=== PATIENT | male | born 1990 | race Caucasian/White ===

== ENCOUNTER → 2021-06-07 | Outpatient (CLI) | payer OTHER, SELFPAY | END | disposition home or self-care (01) | PROVIDERS: Visit Provider Nurse Practitioner Family | DX: Z20.822 Contact with and (suspected) exposure to COVID-19 (principal) | CPT/HCPCS: 87635; U0005; U0003 ==

== ENCOUNTER 2021-07-26 17:49 | Outpatient (CLI) | payer OTHER, SELFPAY | END 2021-07-26 23:59 | disposition short-term general hospital (02) | PROVIDERS: Visit Provider Family Medicine | DX: U07.1 COVID-19 (principal) | CPT/HCPCS: 87635; U0003; U0005 ==

== ENCOUNTER 2021-07-29 08:22 | Outpatient (CLI) | payer OTHER, SELFPAY ==
[2021-07-29 08:33] VITALS: BP 123/83; PULSE 58; RESP 16; TEMP 36.9; O2SAT 98; BMI 36.5
[2021-07-29] MEDS: 0.9% Saline Lock 10 ML Syringe IV (08:47)
[2021-07-29 09:20] VITALS: BP 109/70; PULSE 74; RESP 16; TEMP 36.8; O2SAT 100
[2021-07-29 10:21] VITALS: BP 121/81; PULSE 71; RESP 16; TEMP 36.8; O2SAT 100
== END 2021-07-29 23:59 | disposition home or self-care (01) ==
LOC: MS3OUT 08:22 → MS3 08:23
PROVIDERS: Referring Provider Nurse Practitioner Adult Health; Visit Provider Nurse Practitioner Adult Health
DX: Z23 Encounter for immunization (principal); U07.1 COVID-19
CPT/HCPCS: J7050; M0245; Q0245; A4216

== ENCOUNTER → 2022-02-08 | Outpatient (CLI) | payer MEDICAID, SELFPAY ==
[2022-02-08 12:54] LABS: Anion Gap 4 (5-15); BUN 15 mg/dL (7-18); BUN/Creat Ratio 15.5 RATIO (10-20); Calcium,Total 9.4 mg/dL (8.5-10.1); Chloride 105 mmol/L (98-107); Cholesterol 221 mg/dL (200); Creatinine, Serum 0.97 mg/dL (0.70-1.30); EST Glomerular Filtration Rate 94 mL/min (>60); Est Glom Filt Rate - Afr Amer 114 mL/min (>60); Glucose 90 mg/dL (74-106); High Density Lipoprotein 50 mg/dL; Sodium Level 137 mmol/L (136-145); Triglycerides 111 mg/dL; Very Low Density Lipoprotein 22 mg/dL (5-40)
== END | disposition home or self-care (01) ==
PROVIDERS: PCP Nurse Practitioner Family; Referring Provider Nurse Practitioner Family; Visit Provider Nurse Practitioner Family
DX: R05.9 Cough, unspecified (principal); Z13.220 Encounter for screening for lipoid disorders; Z13.1 Encounter for screening for diabetes mellitus
CPT/HCPCS: 87635; 36415; 80048; 80061; U0003; U0005

== ENCOUNTER → 2024-03-26 | Outpatient (CLI) | payer OTHER, SELFPAY ==
[2024-03-26 17:58] LABS: Absolute Lymphocyte Count 1.93 X10^3/uL (0.83-4.51); Absolute Neutrophil Count 4.9 X10^3/uL (2.0-7.7); Basophil# 0.04 X10^3/uL; Basophil% 0.5 % (0-1); Eosinophil# 0.21 X10^3/uL; Eosinophils% 2.7 % (0-5); Hematocrit 41.8 % (40-54); Hemoglobin 14.1 g/dL (13.0-16.5); Lymphocyte # 1.93 X10^3/ul (0.83-4.51); Lymphocyte % 25.1 % (19-41); Mean Corp Hgb Conc 33.7 g/dL (32-36); Mean Corpuscular Hgb 29.9 pg (27.0-32.0); Mean Corpuscular Volume 88.6 fL (80-94); Mean Platelet Vol. 9.7 fl (6.2-12.0); Monocyte# 0.59 X10^3/uL; Monocyte% 7.7 % (0-10); NRBC Flagged by Analyzer 0 % (0-5); Neutrophil # 4.91 X10^3/uL (2.7-7.7); Neutrophil % 63.7 % (47-70); Platelet Count 333 K/mm3 (150-450); RBC Distribution Width CV 12.5 % (11.6-14.6); RBC Distribution Width SD 40.9 fl (35.1-43.9); Red Blood Count 4.72 M/mm3 (4.6-6.2); White Blood Count 7.7 K/mm3 (4.4-11.0)
== END | disposition home or self-care (01) ==
LOC: MFPLAB 14:44
PROVIDERS: PCP Nurse Practitioner Family; Visit Provider Family Medicine
DX: S02.5XXA Fracture of tooth (traumatic), initial encounter for closed fracture (principal)
CPT/HCPCS: 36415; 85025

== ENCOUNTER 2025-02-14 19:59 | Emergency (ER) | payer SELFPAY ==
[2025-02-14 20:00] VITALS: BP 151/95; PULSE 55; RESP 16; TEMP 36.9; O2SAT 100; BMI 36.7
--- NOTE | 2025-02-14 20:11 | ED.VIS.DENTA ---
HPI <XENA Esquivel - Last Filed: 02/14/25 20:57> History of Present Illness Chief Complaint: Dental Narrative Narrative: 34-year-old male has had pain in his right upper tooth intermittently for the last 2 weeks but today it worsened with sharp pain radiating towards his ear. He states he has a hole in the tooth. He denies fever, chills, or difficulty swallowing or breathing. He took Tylenol earlier. PFSH <XENA Esquivel - Last Filed: 02/14/25 20:57> [facility]LY [facility], [facility] Medical History (Updated 02/14/25 @ 20:12 by XENA Esquivel) Syncopal episodes Concussion with loss of consciousness Tooth fracture Facial contusion Forehead contusion Home Medications ?Medication ?Instructions ?Recorded ?Last Taken ?Type cetirizine 10 mg tablet (Zyrtec) 10 mg PO DAILY PRN Allergic 07/29/21 Unknown History Symptoms escitalopram oxalate 20 mg tablet 20 mg PO DAILY 07/29/21 Unknown History amoxicillin 875 mg-potassium 1 tab PO BID 7 days #14 tabs 02/14/25 Unknown Rx clavulanate 125 mg tablet naproxen 500 mg tablet (Naprosyn) 500 mg PO BID PRN pain #20 tabs 02/14/25 Unknown Rx Allergy/AdvReac Type Severity Reaction Status Date / Time No Known Allergies Allergy Verified 02/14/25 20:02 Social History Smoking Status: Current every day smoker tobacco type: cigarettes ROS <XENA Esquivel - Last Filed: 02/14/25 20:57> ROS ED ROS Narrative Constitutional: Negative for fever, chills, malaise. GI: Negative for nausea, vomiting. Neuro: Negative for headache. EXAM <XENA Esquivel - Last Filed: 02/14/25 20:57> Physical Exam Narrative Exam Narrative: CONST: Patient sitting in no acute distress. EYES: Normal inspection. ENT: Yellow teeth with plaque buildup and several fillings. Right upper premolar has a small hole and is tender to palpation. There is no periapical abscess or facial swelling. Normal posterior oropharynx, no trismus or tongue elevation, sublingual space is soft. No drooling or stridor. Neck appears normal with midline trachea and no masses or lymphadenopathy. RESP: No respiratory distress, CTAB. CVS: Regular rate and rhythm, no murmur, no gallop. SKIN: Color normal, no rash, warm, dry, intact. EXTREMITIES: Normal appearance, no pedal edema. NEURO: Alert and answering questions appropriately. PSYCH: Normal affect. Const Vital Signs: 02/14/25 20:00 02/14/25 20:21 Temperature 98.4 F 98.4 F Temperature Source Temporal Pulse Rate 55 L 71 Respiratory Rate 16 12 Blood Pressure 151/95 H 141/87 H Blood Pressure Mean 113 105 Pulse Ox 100 99 Oxygen Delivery Method Room Air <Dr. Iker Vang MD - Last Filed: 02/14/25 21:12> Physical Exam Const Vital Signs: 02/14/25 20:00 02/14/25 20:21 Temperature 98.4 F 98.4 F Temperature Source Temporal Pulse Rate 55 L 71 Respiratory Rate 16 12 Blood Pressure 151/95 H 141/87 H Blood Pressure Mean 113 105 Pulse Ox 100 99 Oxygen Delivery Method Room Air [facility] <XENA Esquivel - Last Filed: 02/14/25 20:57> [facility] Narrative Medical decision making narrative: 34-year-old male has intermittent dental pain in his right upper premolar over the last 2 weeks that worsened today. There is a small hole in the tooth which is chronic. There is no signs of periapical abscess or Onesimo's angina. He is tolerating secretions. He is afebrile with stable vital signs. I prescribed Augmentin and naproxen with first dose given here. He has seen a dentist at the [facility] in the past and will follow-up there. He was discharged in stable condition. Differential Diagnosis Differential Diagnosis: Dental caries, dental abscess, Onesimo's angina <Dr. Iker Vang MD - Last Filed: 02/14/25 21:12> [facility] Narrative Medical decision making narrative: 34-year-old male has intermittent dental pain in his right upper premolar over the last 2 weeks that worsened today. There is a small hole in the tooth which is chronic. There is no signs of periapical abscess or Onesimo's angina. He is tolerating secretions. He is afebrile with stable vital signs. I prescribed Augmentin and naproxen with first dose given here. He has seen a dentist at the [facility] in the past and will follow-up there. He was discharged in stable condition. I have personally performed a face to face assessment of the patient and have reviewed the NATE Note. I performed a substantive portion of the visit including all aspects of the following. My anand findings include: History is 34-year-old male no [facility] past medical history. Right upper dental pain for several days. No fever. No trouble swallowing. No trauma history. Exam is [34-year-old male no acute distress vital signs stable afebrile. H EENT exam pupils round reactive light. Moist mucous membranes. Posterior pharynx unremarkable. Poor dentition right upper jaw cavity eroded tooth. Gingival inflammation no abscess. No trismus. Able to swallow and breathe out difficulty. No significant facial swelling. No trismus. Neck nontender no lymphadenopathy. Lungs clear. Heart regular rhythm no murmur. Chest wall nontender. Abdomen soft nontender. Moving all 4 extremities. Awake and alert. No focal motor deficits.] Medical Decision Making [34-year-old male dental cavity, dental pain and gingivitis. Started on antibiotic. Outpatient follow-up with a dentist.] Other additions or changes: [None] Discharge Plan Triage Chief Complaint: Dental ED Midlevel Provider: Aracelis Guerrero ED Provider: Iker Vang Dx/Rx/DC Orders Clinical Impression: Dental caries, Pain, dental Instructions: ED Dental Pain Prescriptions: New naproxen [Naprosyn] 500 mg tablet 500 mg PO BID PRN (Reason: pain) Qty: 20 0RF amoxicillin-pot clavulanate 875-125 mg tablet 1 tab PO BID 7 Days Qty: 14 0RF No Action escitalopram oxalate 20 mg Tablet 20 mg PO DAILY cetirizine [Zyrtec] 10 mg Tablet 10 mg PO DAILY PRN (Reason: Allergic Symptoms) Primary Care Provider: Lucille Montalvo NP [facility]] Lucille Montalvo NP, [facility] [Primary Care Provider] - Activity Restrictions/Additional Instructions: I prescribed an antibiotic and naproxen which you can take for pain twice daily. You can continue taking Tylenol 1000 mg every 6 hours as needed. Follow-up with a dentist. Print Language: Ukrainian Disposition Disposition: Home, Self Care Discharge Date/Time: 02/14/25 21:01
[2025-02-14 20:21] VITALS: BP 141/87; PULSE 71; RESP 12; TEMP 36.9; O2SAT 99
--- OUTSIDE RECORDS SUMMARY | 2025-02-14 20:23 | XMS RPT_ITS | CCD ---
Author Organization [facility] Care Team Providers Care Dispatcher [employer]obile [employer] Name Role Phone Unavailable Primary Care Provider Unavaildianna MCGHEE MD, DR CONDON Primary Care Physician LAUREN KRISHNA, ORION Primary Care Physician SUBHASH MACK DO Attending Unavailable LAUREN KRISHNA, ORION Primary Care Unavailable NIMISHA KRISHNA, DANIELLE Islas Attending Unavail able LITZY KRISHNA, DR CONDON Primary Care Unavai lable BENDARAM, NOA BROWN Referring Unavaila ble BENDARAM, NOA BROWN Attending Unavaila ble STALEY, MOEIN Referring Unavailable STALEY, MOEIN Referring Unavailable STALEY, MOEIN Attending Unavailable Selvin VP [employer], Lucille Primary Care Unavailable Selvin VP [employer], Lucille Referring Unavailable Mic Cheung Attending Unavailable Selvin VP [employer], Lucille Primary Care Unavailable Selvin VP [employer], Lucille Referring Unavailable Mic Cheung Attending Unavailable Orion Aguilar Attending Unavailable Selvin VP [employer], Lucille Primary Care Unavailable Medications Current Medications Medication Drug Class(es) Dates Sig (Normalized) Sig (Original) cetirizine hydrochloride 10 mg oral tablet (1 source) Histamine-1 Receptor Antagonist Start: 07-29-2021 take 1 tablet by mouth once daily Cetirizine (Zyrtec) 10 mg Tablet Active 10 MG PO DAILY July 29, 2021 1:00am escitalopram 20 mg oral tablet (9 sources) Serotonin Reuptake Inhibitor Start: 02-12-2024 take 1 tablet by mouth once escitalopram oxalate (LEXAPRO) 20 mg tablet Take 1 tablet by mouth every afternoon. 02/12/2024 Active Start: 07-29-2021 take 20 mg by mouth once daily Escitalopram Oxalate Active 20 MG PO DAILY July 29, 2021 1:00am ipratropium bromide 0.021 mg/actuat metered dose nasal spray (3 sources) Anticholinergic Start: 06-25-2024 Ipratropium [place] (ATROVENT) 21 mcg (0.03 %) nasal spray 06/25/2024 Active iv contrast (will be provided with radiology test) (1 source) Start: 05-10-2024 End: 05-11-2024 inject 1 dose intravenously once iv contrast (will be provided with radiology test) MRI Brain Inject, intravenously, once for 1 dose.No IV access, insert saline lock prior to beginning of sedation, infusion, injection of imaging exam.Discontinue saline lock post exam. If Pt. has a central line or IVAD, may access for administration according to line specific nursing protocol.Once exam is complete flush line and de-access according to line specific nursing protocol in the MR contrast administration guidelines link 1 Each 05/10/2024 05/11/2024 Active metoprolol tartrate 25 mg oral tablet (8 sources) beta-Adrenergic Guy Start: 02-09-2024 take 1 tablet by mouth twice daily metoprolol tartrate, short acting, (LOPRESSOR) 25 mg tablet TAKE 1/2 (ONE HALF) TABLET BY MOUTH TWO TIMES DAILY 02/09/2024 Active ondansetron 4 mg disintegrating oral tablet (1 source) Serotonin-3 Receptor Antagonist Start: 07-07-2024 End: 07-11-2024 ondansetron 4 mg oral tablet, disintegrating Dose : 4 mg = 1 tab(s), Oral, q6h, PRN Nausea/Vomiting, X 4 day(s), # 12 tab(s), 0 Refill(s), 07/11/24 10:21:00 AM EST Start Date: 07/07/24 Stop Date: 07/11/24 Status: Ordered Quantity: 12.0 Unit: tab(s) Repeat number: 1 Completed/Discontinued Medications Medication Drug Class(es) Dates Sig (Normalized) Sig (Original) buPROPion (1 source) Aminoketone End: 05-10-2024 BUPROPION HCL ORAL Take by mouth. 05/10/2024 Discontinued Problems Active Problems Problem Classification Problem Date Documented Da te Episodic/Chronic Disorders of teeth and jaw (1 source) Defective dental scientology; Translations: [Fractured dental restorative material, unspecified] Onset: 03-25-2024 Episodic Nausea and vomiting (1 source) Vomiting; Translations: [Vomiting, unspecified] Onset: 07-07-2024 Episodic Other endocrine disorders (2 sources) Empty sella syndrome; Translations: [Other disorders of pituitary gland] 05-10-2024 Chronic Other endocrine disorders (1 source) Other disorders of pituitary gland; Translations: [Empty sella (HCC)] Onset: 06-28-2024 Chronic Other nervous system disorders (3 sources) Benign intracranial hypertension; Translations: [Benign intracranial hypertension] 05-10-2024 Chronic Other nervous system disorders (1 source) Benign intracranial hypertension; Translations: [Benign intracranial hypertension] Onset: 06-07-2024 Chronic Other nutritional; endocrine; and metabolic disorders (1 source) Body mass index 30+ - obesity; Translations: [Body mass index (BMI) 39.0-39.9, adult] Chronic Skull and face fractures (1 source) Fracture of tooth (traumatic), initial encounter for closed fracture; Translations: [Fracture of tooth (traumatic), initial encounter for closed fracture] Onset: 11-20-2024 Episodic Thyroid disorders (3 sources) Disorder of thyroid gland; Translations: [Disorder of thyroid, unspecified] Onset: 07-19-2024 06-28-2024 Episodic Viral infection (1 source) Disease caused by 2019-nCoV; Translations: [COVID-19] Episodic Past or Other Problems Problem Classification Problem Date Documented Date Episodic/Chronic Intracranial injury (1 source) Concussion with loss of consciousness of unspecified duration, initial encounter; Translations: [Concussion with loss of consciousness of unspecified duration, initial encounter] Onset: 04-04-2024 Episodic Superficial injury; contusion (1 source) Contusion of other part of head, initial encounter; Translations: [Contusion of other part of head, initial encounter] Onset: 04-04-2024 Episodic Syncope (3 sources) Syncope; Translations: [Syncope and collapse] Onset: 03-25-2024 05-10-2024 Episodic Results Test Name Value Interpretation Reference Range Facility US THYROID/PARATHYROIDon US THYROID/PARATHYROID * * *Final Report* * * DATE OF EXAM: Jul 19 2024 10:00AM [facility] [id number] - US THYROID/PARATHYROID / PROCEDURE REASON: Asymmetrical thyroid * * * * Physician Interpretation * * * * EXAMINATION: THYROID ULTRASOUND CLINICAL HISTORY: 33 years old 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 Images were obtained and stored in a permanent archive. MQ: UST_1 COMPARISON: None. RESULT: Right Lobe: 4.5 x 1.4 x 1.6 cm; homogeneous echogenicity, expected vascular flow. Left Lobe: 4.2 x 1.1 x 1.7 cm; homogeneous echogenicity, expected vascular flow. Isthmus: 0.2 cm The most suspicious thyroid nodule(s) (up to four) as below: Nodules: None IMPRESSION: Normal sonographic appearance of the thyroid. Salt Washer: ISMAEL Transcribe Date/Time: Jul 21 2024 2:24A Dictated by : ERON DE JESUS DO This examination was interpreted and the report reviewed and electronically signed by: ERON DE JESUS DO on Jul 21 2024 2:25AM EST [id number] Normal [facility] .Auto Diffon 07-07-2024 Basophil, Absolute 0.1 10 3/mcL Normal 0.0-0.2 [facility] Comment on above: Performed By: #### ELSA CANDELARIO #### [address] [address] Basophils/100 WBC (Bld) 0.3 % Normal 0.0-2.5 [facility] Comment on above: Performed By: #### ELSA CANDELARIO #### [address] [address] Eosinophil, Absolute 0.1 10 3/mcL Normal 0.0-0.7 [facility] Comment on above: Performed By: #### ELSA CANDELARIO #### [id number] [place], [place] [address] Eosinophils/100 WBC (Bld) 0.7 % Normal 0.0-7.0 [facility] Comment on above: Performed By: #### ELSA CANDELARIO #### [id number] [place], [place] [address] Lymphocyte, Absolute 0.5 10 3/mcL Low 0.9-4.3 [facility] Comment on above: Performed By: #### ELSA CANDELARIO #### [address] [address] Lymphocytes/100 WBC (Bld) 2.9 % Low 20.0-40.0 [facility] Comment on above: Performed By: #### U AMICAO, UA #### [address] [place], [place] [address] Monocyte, Absolute 1.2 10 3/mcL Normal 0.1-1.4 [facility] Comment on above: Performed By: #### U AMICAO, UA #### [address] [address] Monocytes/100 WBC (Bld) 6.7 % Normal 2.0-13.0 [facility] Comment on above: Performed By: #### U AMICAO UA #### [address] [address] Neutrophils/100 WBC (Bld) 89.4 % High 50.0-75.0 [facility] Comment on above: Performed By: #### U AMICAO UA #### [address] [address] .GFRon 07-07-2024 GFR 90 ml/min/1.73sqm Normal [facility] Comment on above: Result Comment: GFR Population mean for , Non- Americans Ages 20-29 = 116 mL/min/1.73 sq.m. Ages 30-39 = 107 mL/min/1.73 sq.m. Ages 40-49 = 99 mL/min/1.73 sq.m. Ages 50-59 = 93 mL/min/1.73 sq.m. Ages 60-69 = 85 mL/min/1.73 sq.m. Ages 70+ = 75 mL/min/1.73 sq.m. Chronic Kidney Disease: Less than 60 mL/min/1.73 square meters End Stage Renal Disease: Less than 15 mL/min/1.73 square meters Performed By: #### U AMICAO, UA #### [address] [address] GFR Non- 74 ml/min/1.73sqm Normal [facility] Comment on above: Result Comment: GFR Population mean for , Non- Americans Ages 20-29 = 116 mL/min/1.73 sq.m. Ages 30-39 = 107 mL/min/1.73 sq.m. Ages 40-49 = 99 mL/min/1.73 sq.m. Ages 50-59 = 93 mL/min/1.73 sq.m. Ages 60-69 = 85 mL/min/1.73 sq.m. Ages 70+ = 75 mL/min/1.73 sq.m. Chronic Kidney Disease: Less than 60 mL/min/1.73 square meters End Stage Renal Disease: Less than 15 mL/min/1.73 square meters Performed By: #### Noah PLASCENCIA UA #### [address] [address] .MDWon 07-07-2024 Monocyte Distribution Width 16.23 Normal 0.00-20.00 [facility] Comment on above: Result Comment: For ED adult patients suspected of sepsis, MDW<=20.0 does not rule out sepsis or risk of sepsis Performed By: #### Noah PLASCENCIA UA #### [address] [address] .NEUABSon 07-07-2024 Neutrophil, Absolute 16.5 10 3/mcL High 2.3-8.1 [facility] Comment on above: Performed By: #### Noah PLASCENCIA UA #### [address] [address] .Urinalysis Microscopic (AO) on 07-07-2024 UA Mucous 2+ /hpf Normal [facility] Comment on above: Performed By: #### Noah PLASCENCIA UA #### [address] UA RBC 0-5 Abnormal None Seen [facility] Comment on above: Performed By: #### Noah PLASCENCIA UA #### [address] UA Squam Epithelial 0-5 Abnormal None Seen [facility] Comment on above: Performed By: #### U AMICAO, UA #### [address] [address] UA WBC 5-10 Abnormal None Seen [facility] Comment on above: Performed By: #### U AMICAO, UA #### [address] [address] BMPon 07-07-2024 BUN/Creatinine Ratio 19 ratio Normal 7-27 [facility] Comment on above: Performed By: #### U AMICAO, UA #### [address] [address] Calcium [Mass/Vol] 9.2 mg/dL Normal 8.4-10.2 [facility] Comment on above: Performed By: #### U AMICAO, UA #### [address] [address] Chloride [Moles/Vol] 103 mmol/L Normal 98-107 [facility] Comment on above: Performed By: #### U AMICAO, UA #### [address] [address] CO2 [Moles/Vol] 28 mmol/L Normal 22-29 [facility] Comment on above: Performed By: #### U AMICAO, UA #### [address] [address] Creatinine [Mass/Vol] 1.13 mg/dL Normal 0.70-1.30 [facility] Comment on above: Result Comment: Test ing performed on Siemens Dimension EXL analyzer using a modified kinetic Oscar technique. Performed By: #### U AMICAO, UA #### [address] [address] Electrolyte Balance 8.0 mEq/L Normal 4.0-15.0 [facility] Comment on above: Performed By: #### U AMICAO, UA #### [address] [address] Glucose [Mass/Vol] 126 mg/dL High 70-105 [facility] Comment on above: Performed By: #### U AMICAOmega UA #### [address] [address] Potassium [Moles/Vol] 4.1 mmol/L Normal 3.5-5.1 [facility] Comment on above: Performed By: #### U AMICAOmega UA #### [address] [address] Sodium [Moles/Vol] 139 mmol/L Normal 136-145 [facility] Comment on above: Performed By: #### U THAIS UA #### [address] [id number] Urea nitrogen [Mass/Vol] 22 mg/dL High 7-18 [facility] Comment on above: Performed By: #### Noah PLASCENCIA UA #### [address] [address] CBCon 07-07-2024 Erythrocyte distribution width (RBC) [Ratio] 12.9 % Normal 11.5-15.5 [facility] Comment on above: Performed By: #### Noah PLASCENCIA UA #### [address] [address] Hematocrit (Bld) [Volume fraction] 49.6 % Normal 40.0-52.0 [facility] Comment on above: Performed By: #### Noah PLASCENCIA UA #### [address] [address] Hgb 17.4 G/dL Normal 13.0-17.5 [facility] Comment on above: Performed By: #### U THAIS, UA #### [address] [address] MCH (RBC) [Entitic mass] 31.0 pg Normal 27.0-33.0 [facility] Comment on above: Performed By: #### U AMICAOmega UA #### [address] [address] MCHC 35.1 G/dL Normal 32.0-36.0 [facility] Comment on above: Performed By: #### Noah PLASCENCIA UA #### [id number] MCV (RBC) [Entitic vol] 88.6 fL Normal 81.0-100.0 [facility] Comment on above: Performed By: #### Noah PLASCENCIA UA #### [address] [place] [address] Platelet 312 10 3/mcL Normal 150-450 [facility] Comment on above: Performed By: #### Noah PLASCENCIA UA #### [address] [address] Platelet mean volume (Bld) [Entitic vol] 6.7 fL Normal 6.4-10.5 [facility] Comment on above: Performed By: #### Noah PLASCENCIA UA #### [address] [place] [address] RBC 5.60 10 6/mcL Normal 4.50-6.00 [facility] Comment on above: Performed By: #### Noah PLASCENCIA UA #### [address] [address] WBC 18.5 10 3/mcL High 4.5-10.8 [facility] Comment on above: Performed By: #### Noah PLASCENCIA UA #### [address] [address] LABORATORYOrdered By: SYSTEM SYSTEM on 07-07-2024 Basophils (Bld) [#/Vol] 0.1 103/mcL Normal 0.0 - 0.2 10^3/mcL AO Workflow SS Basophils/100 WBC (Bld) 0.3 % Normal 0.0 - 2.5 % AO Workflow SS Calcium [Mass/Vol] 9.2 mg/dL Normal 8.4 - 10. 2 mg/dL AO ADM SS Chloride [Moles/Vol] 103 mmol/L Normal 98 - 10 7 mmol/L AO ADM SS CO2 [Moles/Vol] 28 mmol/L Normal 22 - 29 mmol/L AO ADM SS Creatinine [Mass/Vol] 1.13 mg/dL Normal 0.70 - 1.30 mg/dL AO ADM SS Comment on above: Interpretive Data: T esting performed on Siemens Dimension EXL analyzer using a modified kinetic Oscar technique. Electrolyte Balance 8.0 mEq/L Normal 4.0 - 15 .0 mEq/L AO ADM SS Eosinophil, Absolute 0.1 103/mcL Normal 0.0 - 0 .7 10^3/mcL AO Workflow SS Eosinophils/100 WBC (Bld) 0.7 % Normal 0.0 - 7.0 % AO Workflow SS Erythrocyte distribution width (RBC) [Ratio] 12.9 % Normal 11.5 - 15.5 % AO Workflow SS GFR/1.73 sq M.predicted among blacks MDRD (S/P/Bld) [Vol rate/Area] 90 ml/min/1.73sqm Invalid Interpretation Code AO Chemistry S Comment on above: Interpretive Data: GFR Population mean for , Non- Americans Ages 20-29 = 116 mL/min/1.73 sq.m. Ages 30-39 = 107 mL/min/1.73 sq.m. Ages 40-49 = 99 mL/min/1.73 sq.m. Ages 50-59 = 93 mL/min/1.73 sq.m. Ages 60-69 = 85 mL/min/1.73 sq.m. Ages 70+ = 75 mL/min/1.73 sq.m. Chronic Kidney Disease: Less than 60 mL/min/1.73 square meters End Stage Renal Disease: Less than 15 mL/min/1.73 square meters GFR/1.73 sq M.predicted among non-blacks MDRD (S/P/Bld) [Vol rate/Area] 74 ml/min/1.73sqm Invalid Interpretation Code AO Chemistry S Comment on above: Interpretive Data: GFR Population mean for , Non- Americans Ages 20-29 = 116 mL/min/1.73 sq.m. Ages 30-39 = 107 mL/min/1.73 sq.m. Ages 40-49 = 99 mL/min/1.73 sq.m. Ages 50-59 = 93 mL/min/1.73 sq.m. Ages 60-69 = 85 mL/min/1.73 sq.m. Ages 70+ = 75 mL/min/1.73 sq.m. Chronic Kidney Disease: Less than 60 mL/min/1.73 square meters End Stage Renal Disease: Less than 15 mL/min/1.73 square meters Glucose [Mass/Vol] 126 mg/dL High 70 - 105 mg/dL AO ADM SS Hematocrit (Bld) [Volume fraction] 49.6 % Normal 40.0 - 52.0 % AO Workflow SS Hemoglobin (Bld) [Mass/Vol] 17.4 G/dL Normal 13.0 - 17.5 G/dL AO Workflow SS Lymphocytes (Bld) [#/Vol] 0.5 103/mcL Low 0.9 - 4.3 10^3/mcL AO Workflow SS Lymphocytes/100 WBC (Bld) 2.9 % Low 20.0 - 40.0 % AO Workflow SS Magnesium [Mass/Vol] 1.9 mg/dL Normal 1.8 - 2 .4 mg/dL AO ADM SS MCH (RBC) [Entitic mass] 31.0 pg Normal 27.0 - 33.0 pg AO Workflow SS MCHC 35.1 G/dL Normal 32.0 - 36.0 G/dL AO Workflow SS MCV (RBC) [Entitic vol] 88.6 fL Normal 81.0 - 100.0 fL AO Workflow SS Monocyte distribution width Auto (Bld) [Entitic vol] 16.23 1 Normal 0.00 - 20.00 AO Workflow SS Comment on above: Result Comment: For ED adult patients suspected of sepsis, MDW<=20.0 does not rule out sepsis or risk of sepsis Monocytes (Bld) [#/Vol] 1.2 103/mcL Normal 0.1 - 1.4 10^3/mcL AO Workflow SS Monocytes/100 WBC (Bld) 6.7 % Normal 2.0 - 13.0 % AO Workflow SS Neutrophils (Bld) [#/Vol] 16.5 103/mcL High 2.3 - 8.1 10^3/mcL AO Workflow SS Neutrophils/100 WBC (Bld) 89.4 % High 50.0 - 75.0 % AO Workflow SS Platelet mean volume (Bld) [Entitic vol] 6.7 fL Normal 6.4 - 10.5 fL AO Workflow SS Platelets (Bld) [#/Vol] 312 103/mcL Normal 150 - 450 10^3/mcL AO Workflow SS Potassium [Moles/Vol] 4.1 mmol/L Normal 3.5 - 5.1 mmol/L AO ADM SS RBC (Bld) [#/Vol] 5.60 106/mcL Normal 4.50 - 6.0 0 10^6/mcL AO Workflow SS Sodium [Moles/Vol] 139 mmol/L Normal 136 - 145 mmol/L AO ADM SS Troponin I.cardiac DL <= 0.01 ng/mL [Mass/Vol] 6 ng/L Normal 0 - 76 ng/L AO ADM SS Comment on above: Interpretive Data: H igh Sensitive Troponin I Reference Ranges: Female: 0-51 ng/L Male: 0-76 ng/L Testing performed on Impinj using a homogeneous sandwich chemiluminescent immunoassay based on [employer] technology. Urea nitrogen [Mass/Vol] 22 mg/dL High 7 - 18 mg/dL AO ADM SS Urea nitrogen/Creatinine [Mass ratio] 19 ratio Normal 7 - 27 ratio AO ADM SS WBC (Bld) [#/Vol] 18.5 103/mcL High 4.5 - 10.8 10^3/mcL AO Workflow SS LABORATORYOrdered By: Marilee Cordoba on 07-07-2024 Appearance (U) Clear (07/07/24 8:22 AM) Normal Clear AO Auto Urine SS Bilirubin Ql (U) Negative (07/07/24 8:22 AM) Normal Negative AO Auto Urine SS Color (U) Yellow (07/07/24 8:22 AM) Normal AO Auto Urine SS Glucose Test strip (U) [Mass/Vol] Negative Normal Negative AO Auto Urine SS Hemoglobin Auto test strip (U) [Mass/Vol] Negative (07/07/24 8:22 AM) Normal Negative AO Auto Urine SS Ketones Ql (U) Negative Normal Negative AO Auto Urine SS UA Leuk Est Negative (07/07/24 8:22 AM) Normal Negative AO Auto Urine SS UA Mucous 2+ /HPF Normal AO Auto Urine SS UA Nitrite Negative (07/07/24 8:22 AM) Normal Negative AO Auto Urine SS UA pH 5.5 (07/07/24 8:22 AM) Normal 5.0 - 8.0 AO Auto Urine SS UA Protein 30 mg/dL Normal Negative AO Auto Urine SS UA RBC 0-5 /HPF Invalid Interpretation Code None Seen AO Auto Urine SS UA Spec Grav >=1.030 *ABN* (07/07/24 8:22 AM) Invalid Interpretation Code 1.015-1.025 AO Auto Urine SS UA Specimen Type Clean Catch (07/07/24 8:22 AM) Normal AO Auto Urine SS UA Squam Epithelial 0-5 /HPF Invalid Interpretation Code None Seen AO Auto Urine SS UA Urobilinogen 0.2 E.U./dL Normal 0.2-1.0 AO Auto Urine SS WBC LM.HPF (Urine sed) [#/Area] 5-10 /HPF Invalid Interpretation Code None Seen AO Auto Urine SS MGon 07-07-2024 Magnesium [Mass/Vol] 1.9 mg/dL Normal 1.8-2.4 [facility] Comment on above: Performed By: #### U AMICAO UA #### [address] [address] TROPHSon 07-07-2024 High Sensitivity Troponin I 6 ng/L Normal 0-76 [facility] Comment on above: Result Comment: High Sensitive Troponin I Reference Ranges: Female: 0-51 ng/L Male: 0-76 ng/L Testing performed on Impinj using a homogeneous sandwich chemiluminescent immunoassay based on CourseHorse technology. Performed By: #### U AMICAO, UA #### [address] [address] UAon 07-07-2024 Color (U) Yellow Normal [facility] Comment on above: Performed By: #### U AMICAO, UA #### [address] [address] Glucose (U) [Mass/Vol] Negative Normal Negative [facility] Comment on above: Performed By: #### U AMICAO, UA #### [address] [address] Ketones Ql (U) Negative Normal Negative [facility] Comment on above: Performed By: #### U AMICAO, UA #### [address] [address] UA Appear Clear Normal Clear [facility] Comment on above: Performed By: #### U AMICAO, UA #### [address] [address] UA Blood Negative Normal Negative [facility] Comment on above: Performed By: #### U AMICAO, UA #### [address] [address] UA Leuk Est Negative Normal Negative [facility] Comment on above: Performed By: #### U AMICAO, UA #### [address] [address] UA Nitrite Negative Normal Negative [facility] Comment on above: Performed By: #### U AMICAO, UA #### [address] [address] UA pH 5.5 Normal 5.0 - 8.0 [facility] Comment on above: Performed By: #### U AMICAO, UA #### [place] [address] UA Protein 30 mg/dL Normal Negative [facility] Comment on above: Performed By: #### U AMICAO, UA #### [address] [address] UA Spec Grav >=1.030 Abnormal 1.015-1.025 [facility] Comment on above: Performed By: #### U AMICAO, UA #### [address] [address] UA Specimen Type Clean Catch Normal [facility] Comment on above: Performed By: #### U AMICAO, UA #### [address] [address] UA Urobilinogen 0.2 E.U./dL Normal 0.2-1.0 [facility] Comment on above: Performed By: #### U AMICAO, UA #### [place] [id number] Urobilinogen (U) [Mass/Vol] Negative Normal Negative [facility] Comment on above: Performed By: #### U AMICAO, UA #### [place] [address] CNOVon 06-28-2024 CNOV Office Visit (ENWSTR ) YOMI ALBERTO ([id number]) 1990 M Date Time Provider Department 06/28/24 1:40 PM NOA KISER ENWSTR During your visit today, we recorded the following information about you: Temperature Pulse Blood pressure Weight 98.5 degrees 76/minute 132/62 95.9 kg Height 1.702 m Noa Kiser MD 06/29/2024 7:51 PM Addendum [facility] Initial Clinic Visit Note Consulted by: Peggy Staley MD (Neurology) Chief Complaint: Empty sella syndrome HPI: This is a 33 year old male who presents with empty sells syndrome. He is accompanied by his mother today History in brief, he passed out at work in Mar 2024, on standing. Denied any symptoms before. The next thing he knew was that he was on the floor He was on metoprolol for few years, stopped it few days ago after tapering, due to low BP He is following neurology No injuries to head, no vision changes, no nipple discharge, breast tenderness, N/V/D, changes known in weight or appetite per patient, but mother points out that he might have lost about 30 lbs in the last 2 years due to stress, going through divorce No muscle cramps, temperature intolerance Only on lexapro now,. No use of supplements PAST MEDICAL HISTORY: Depression PAST SURGICAL HISTORY: No past surgical history on file. FAMILY HISTORY: No family history on file. SOCIAL HISTORY: Social History Tobacco Use Smoking status: Former MEDICATIONS: Current Outpatient Medications Medication Sig escitalopram oxalate (LEXAPRO) 20 mg tablet Take 1 tablet by mouth every afternoon. metoprolol tartrate, short acting, (LOPRESSOR) 25 mg tablet TAKE 1/2 (ONE HALF) TABLET BY MOUTH TWO TIMES DAILY No current facility-administered medications for this visit. ALLERGIES: ALLERGIES No Known Allergies REVIEW OF SYSTEMS: GENERAL: No weight loss, malaise or fevers HEENT: Negative for frequent or significant headaches, No changes in hearing or vision, no nose bleeds or other nasal problems NECK: Negative for lumps, goiter, pain and significant neck swelling RESPIRATORY: Negative for cough, hemoptysis, wheezing, COPD, dyspnea or shortness of breath CARDIOVASCULAR: Negative for chest pain, leg swelling, hypertension, CHF or palpitations GI: No nausea, vomiting, or diarrhea MUSCULOSKELETAL: Negative for joint pain or swelling, back pain or muscle pain SKIN: Negative for lesions, rash, and itching ENDOCRINE: Negative for cold or heat intolerance, polyuria, polydipsia and goiter NEURO: No history of headaches, syncope, paralysis, seizures or tremors All other reviewed and negative other than HPI. PHYSICAL EXAM: BP 132/62 (BP Site: Right Arm, BP Position: Sitting, BP Cuff Size: Regular Adult) Pulse 76 Temp 36.9 ?C (98.5 ?F) (Temporal Artery) Ht 170.2 cm (5' 7) Wt 95.9 kg (211 lb 6.4 oz) SpO2 94% BMI 33.11 kg/m? Body mass index is 33.11 kg/m?. General Appearance: Well appearing, alert, in no acute distress, well-hydrated, well nourished, obese body habitus Skin: Skin color, texture, turgor normal, no suspicious rashes or lesions. Eyes: Anicteric sclera. Extraocular movements are intact. . Neck: Supple, no adenopathy; thyroid appears nodular/irregular contour, with no discrete nodules, normal size Lungs: unlabored breathing on room air Heart: RRR, S1 and S2 normal Abdomen: soft, non tender, no striae Extremities: No deformities, edema, skin discoloration, clubbing or cyanosis. No tremors on outstretched arms Musculoskeletal: No joint swelling, deformity, or tenderness. Peripheral Pulses: Normal. Neurologic: Gait normal. Reflexes normal and symmetric. LABS: No pertinent labs available Imagin06/07/2024: RESULT: Acute Change: There is no evidence of restricted diffusion to suggest an acute infarct. Hemorrhage: No evidence of prior parenchymal hemorrhage on the susceptibility weighted images. Mass Lesion/ Mass Effect: No evidence of an intracranial mass or extra-axial fluid collection. No abnormal parenchymal or leptomeningeal enhancement is noted following contrast administration. No significant mass effect. Chronic Change: The white matter is within normal limits of signal intensity for age. Parenchyma: No significant volume loss for age. The brain parenchyma is otherwise within normal limits of signal intensity and morphology. Partial empty sella. Minimal prominence of the subarachnoid space adjacent the optic nerves bilaterally. These findings can be seen with intracranial hypertension. Ventricles: Normal caliber and morphology. Skull Base: Hypothalamic and pituitary region are grossly normal. Craniocervical junction is normal. No significant marrow replacement process. Vasculature: Major intracranial arterial structures, and dural venous sinuses show typical flow void, (more content not included)... Normal [facility] 06-11-2024 [facility] Telephone (Contact At Once!) YOMI ALBERTO ([id number]) 1990 M Date Time Provider Department 06/11/24 PEGGY STALEY [facility] During your visit today, we recorded the following information about you: Master Melendez 06/11/2024 9:39 AM Signed Called to schedule consult to headache clinic. LV with phone number to call and schedule Allergies As of Date: 06/11/2024 (No Known Allergies) Date Reviewed: 05/10/2024 Reviewed by: Jessica Romero MA - Fully Assessed Reason for Visit: Appointment [186] Cmt: Called to schedule consult to headache clinic. LVM with phone number to call and schedule Prescriptions as of 06/11/2024 - escitalopram oxalate (LEXAPRO) 20 mg tablet Take 1 tablet by mouth every afternoon. - metoprolol tartrate, short acting, (LOPRESSOR) 25 mg tablet TAKE 1/2 (ONE HALF) TABLET BY MOUTH TWO TIMES DAILY Problem List As Of Date: 06/11/2024 (None) Encounter Status:Closed by MASTER MELENDEZ on 06/11/24 Normal [facility] 06[facility]10-2024 [facility] YOMI ALBERTO ([id number]) 1990 M Date Time Provider Department 06/10/24 PEGGY STALEY During your visit today, we recorded the following information about you: Zenobia Aguilar RN 06/10/2024 10:[address] Staley: please contact this patient to let him know that his MRI brain did not show any mass or acute pathology in the brain. It did confirm the presence of empty sella (pituitary) which we had seen previously on his CTH and he has appointment with endocrinology scheduled. His MRI does have subtle features of elevated intracranial pressure (a condition called idiopathic intracranial hypertension or IIH). This can cause headache and is usually confirmed via a spinal tap but I would suggest he sees one of the headache neurologist to decide if this is needed since the headache we discussed during his office visit was not suggestive of this disorder. I have placed a referral for him. Zenobia Aguilar RN 06/10/2024 10:07 AM Signed Called patient, unable to leave a message at this time, will try back at a later time Zenobia Aguilar RN 06/11/2024 9:32 AM Signed Called patient Identified by name and date of Reviewed results and recommendations Patient was at work and could not take number for headache neurology Will send a message to appts to see if they can help get this appt setup Patient verbalized understanding and agrees with plan No further concerns Allergies As of Date: 06/10/2024 (No Known Allergies) Date Reviewed: 05/10/2024 Reviewed by: Jessica Romero MA - Fully Assessed Reason for Visit: Results [95] Prescriptions as of 06/12/2024 - escitalopram oxalate (LEXAPRO) 20 mg tablet Take 1 tablet by mouth every afternoon. - metoprolol tartrate, short acting, (LOPRESSOR) 25 mg tablet TAKE 1/2 (ONE HALF) TABLET BY MOUTH TWO TIMES DAILY Problem List As Of Date: 06/10/2024 (None) Encounter Status:Closed by ZENOBIA AGUILAR on 06/12/24 Normal [facility] MR Brain WO and W contrast I Von 06-07-2024 IMPRESSION: Findings as detailed above which can be seen with intracranial hypertension. No acute findings or intracranial mass. Salt Washer: ISMAEL Transcribe Date/Time: Jun 07 2024 1:35P Dictated by : TALAT MORFIN MD This examination was interpreted and the report reviewed and electronically signed by: TALAT MORFIN MD on Jun 07 2024 1:41PM [facility] DIVISION OF RADIOLOGY * * *Final Report* * * DATE OF EXAM: Jun 07 2024 1:19PM [facility] 0295 - MRI BRAIN WO/W IVCON / PROCEDURE REASON: Benign intracranial hypertension * * * * Physician Interpretation * * * * EXAMINATION: MRI BRAIN WO/W IVCON CLINICAL HISTORY: Benign intracranial hypertension. TECHNIQUE: Routine brain MRI protocol without and with contrast including diffusion images. MQ: MRBWOW_2 Contrast: 10 mL Elucirem IV COMPARISON: Head CT performed 03/25/2024. RESULT: Acute Change: There is no evidence of restricted diffusion to suggest an acute infarct. Hemorrhage: No evidence of prior parenchymal hemorrhage on the susceptibility weighted images. Mass Lesion/ Mass Effect: No evidence of an intracranial mass or extra-axial fluid collection. No abnormal parenchymal or leptomeningeal enhancement is noted following contrast administration. No significant mass effect. Chronic Change: The white matter is within normal limits of signal intensity for age. Parenchyma: No significant volume loss for age. The brain parenchyma is otherwise within normal limits of signal intensity and morphology. Partial empty sella. Minimal prominence of the subarachnoid space adjacent the optic nerves bilaterally. These findings can be seen with intracranial hypertension. Ventricles: Normal caliber and morphology. Skull Base: Hypothalamic and pituitary region are grossly normal. Craniocervical junction is normal. No significant marrow replacement process. Vasculature: Major intracranial arterial structures, and dural venous sinuses show typical flow void, suggesting patency by spin echo criteria. Other: The visualized paranasal sinuses and mastoid air cells are clear. The orbits and extracranial soft tissues are unremarkable. DIVISION OF RADIOLOGY Provider, [facility] - 06/07/2024 * * *Final Report* * * DATE OF EXAM: Jun 07 2024 1:19PM [facility] 0295 - MRI BRAIN WO/W IVCON / PROCEDURE REASON: Benign intracranial hypertension * * * * Physician Interpretation * * * * EXAMINATION: MRI BRAIN WO/W IVCON CLINICAL HISTORY: Benign intracranial hypertension. TECHNIQUE: Routine brain MRI protocol without and with contrast including diffusion images. MQ: MRBWOW_2 Contrast: 10 mL Elucirem IV COMPARISON: Head CT performed 03/25/2024. RESULT: Acute Change: There is no evidence of restricted diffusion to suggest an acute infarct. Hemorrhage: No evidence of prior parenchymal hemorrhage on the susceptibility weighted images. Mass Lesion/ Mass Effect: No evidence of an intracranial mass or extra-axial fluid collection. No abnormal parenchymal or leptomeningeal enhancement is noted following contrast administration. No significant mass effect. Chronic Change: The white matter is within normal limits of signal intensity for age. Parenchyma: No significant volume loss for age. The brain parenchyma is otherwise within normal limits of signal intensity and morphology. Partial empty sella. Minimal prominence of the subarachnoid space adjacent the optic nerves bilaterally. These findings can be seen with intracranial hypertension. Ventricles: Normal caliber and morphology. Skull Base: Hypothalamic and pituitary region are grossly normal. Craniocervical junction is normal. No significant marrow replacement process. Vasculature: Major intracranial arterial structures, and dural venous sinuses show typical flow void, suggesting patency by spin echo criteria. Other: The visualized paranasal sinuses and mastoid air cells are clear. The orbits and extracranial soft tissues are unremarkable. IMPRESSION IMPRESSION: Findings as detailed above which can be seen with intracranial hypertension. No acute findings or intracranial mass. Salt Washer: PSCB Transcribe Date/Time: Jun 07 2024 1:35P Dictated by : TALAT MORFIN MD This examination was interpreted and the report reviewed and electronically signed by: TALAT MORFIN MD on Jun 07 2024 1:41PM EST [facility] Radiology Study observation (narrative) [facility] MR Brain WO and W contrast I VOrdered By: [facility] Provider on 06-07-2024 [facility] MRI BRAIN WO/W IVCONon 06-07 MRI BRAIN WO/W IVCON * * *Final Report* * * DATE OF EXAM: Jun 07 2024 1:19PM [facility] 0295 - MRI BRAIN WO/W IVCON / PROCEDURE REASON: Benign intracranial hypertension * * * * Physician Interpretation * * * * EXAMINATION: MRI BRAIN WO/W IVCON CLINICAL HISTORY: Benign intracranial hypertension. TECHNIQUE: Routine brain MRI protocol without and with contrast including diffusion images. MQ: MRBWOW_2 Contrast: 10 mL Elucirem IV COMPARISON: Head CT performed 03/25/2024. RESULT: Acute Change: There is no evidence of restricted diffusion to suggest an acute infarct. Hemorrhage: No evidence of prior parenchymal hemorrhage on the susceptibility weighted images. Mass Lesion/ Mass Effect: No evidence of an intracranial mass or extra-axial fluid collection. No abnormal parenchymal or leptomeningeal enhancement is noted following contrast administration. No significant mass effect. Chronic Change: The white matter is within normal limits of signal intensity for age. Parenchyma: No significant volume loss for age. The brain parenchyma is otherwise within normal limits of signal intensity and morphology. Partial empty sella. Minimal prominence of the subarachnoid space adjacent the optic nerves bilaterally. These findings can be seen with intracranial hypertension. Ventricles: Normal caliber and morphology. Skull Base: Hypothalamic and pituitary region are grossly normal. Craniocervical junction is normal. No significant marrow replacement process. Vasculature: Major intracranial arterial structures, and dural venous sinuses show typical flow void, suggesting patency by spin echo criteria. Other: The visualized paranasal sinuses and mastoid air cells are clear. The orbits and extracranial soft tissues are unremarkable. IMPRESSION: Findings as detailed above which can be seen with intracranial hypertension. No acute findings or intracranial mass. Salt Washer: [facility] Transcribe Date/Time: Jun 07 2024 1:35P Dictated by : TALAT MORFIN MD This examination was interpreted and the report reviewed and electronically signed by: TALAT MORFIN MD on Jun 07 2024 1:41PM EST [id number] Normal [facility] CNOVon 05-10-2024 CNOV Office Visit ([facility]MDNA ) YOMI ALBERTO ([id number]) 1990 M Date Time Provider Department 05/10/24 10:30 AM PEGGY STALEY [facility] During your visit today, we recorded the following information about you: Pulse Respiration Blood pressure Weight 51/minute 16/minute 102/62 95.3 kg Peggy Staley MD 05/10/2024 12:22 PM [facility] NEW PATIENT EVALUATION/CONSULTATION Referral source: SELF Also 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: 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 The patient was accompanied by his mother. Previous records (physician notes, laboratory reports, and radiology reports) and imaging studies were reviewed and summarized. My recommendations will be communicated back to the patient's physician(s) via electronic medical record. Follow-up is expected to be with the patient's primary care physician. Seen at [place] ED for syncope with head trauma on 03/25/2024. Patient reports he was working and had syncope without warning sings. He is currently under a lot of stress as in the process of divorce. He also had a recent COVID-19 infection prior to syncope. He was reportedly unconscious for a few minutes. No motor seizure activity was witnessed. He did injure his tooth and lip due to the fall. He denies bowel or bladder incontinence. He was slightly dizzy after the event and has returned to work now after a week. CTH was obtained in the ED which showed a partially empty sella and referred to us for further evaluation. He has not experienced any further episodes but has had 1-2 presyncopal events since that time. His mum reports another episode of syncope in his teenage years. He denies any focal neurological events including weakness, numbness, tingling, dysarthria, vision changes, or bowel/bladder symptoms. He experiences headaches approximately once per week lasting an hour or so and improves with rest. Improves with laying down or OTC analgesia. He was recently prescribed migraine abortive medication for the headache. He denies tinnitus. He was prescribed metoprolol 12.5 mg BID (? unclear cause) but he usually takes it 25 mg in the mornings (patient reports not being worried about the dose since it was a small pill). He smokes tobacco. He denies significant alcohol use. 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 Current Symptoms: Fatigue, couple of years PAST HISTORY: has no past medical history on file. has no past surgical history on file. has a current medication list which includes the following prescription(s): escitalopram oxalate, metoprolol tartrate (short acting), and iv contrast. Social History Tobacco Use Smoking status: Former Smokeless tobacco: Not on file family history is not on file. PHYSICAL EXAM: BP 102/62 (BP Site: Left Arm, BP Position: Sitting, BP Cuff Size: Regular Adult) Pulse (!) 51 Resp 16 Wt 95.3 kg (210 lb 1.6 oz) SpO2 99% Hair, skin, nails, and joints were normal. Neck was supple without Lhermitte's phenomenon. Breathing comfortably on room air. There was no peripheral edema. Dental fracture noted. Dysmorphic appearance. The patient was alert and with normal language, attention and concentration, recent and remote memory, praxis, and intellectual function. Affect was normal. The patient did not appear depressed. Visual acuity to near card was as follows: OD= 20/20 (without correction) OS= 20/20 (without correction). Visual house were full to confrontation. Pupils were 3 mm and briskly reactive OU without a relative afferent pupillary defect. Funduscopic examination was normal without disc edema, erythema, or atrophy. Ocular ductions were full without nystagmus or ataxia. Facial sensation was normal. Muscles of mastication and facial expression moved normally. Hearing was intact to finger rub bilaterally. Palatal movements were normal. Sternocleidomastoid and trapezius power were normal. Tongue movements were normal. There was no dysarthria. Motor Examination: There was no pronator drift. Right Upper Extremity: Left Upper Extremity: Deltoid 5/5 Deltoid 5/5 Biceps 5/5 Biceps 5/5 Triceps 5/5 Triceps 5/5 Wrist extensors 5/5 Wrist extensors 5/5 Wrist flexors 5/5 (more content not included)... Normal [facility] Office Visit Reporton 2023 Office Visit Report [facility] [address] [place] [address] OFFICE VISIT Date of Service: 03/25/24 MR#: [id number] Acct: [id number] Patient: YOMI ALBERTO Rep #: [id number] 1 : 1990 Provider: XENA Frank Age/Sex: 33/M Location: [facility] Status: Signed Intake Vital Signs 07/29/21 08:33 Height 5 ft 8 in Intake Visit Reasons: POST ACC/DRUG/BAT SCREEN/WILL AILYN Chief Complaint: covid monoclonal Allergies No Known Allergies Allergy (Verified 07/27/21 13:43) Office Procedures [facility] Billing Sheet Testing Post-Accident Non-DOT Breath Alcohol Test: Yes Post-Accident NON-DOT Drug Screen in [facility]: Yes 04/22/24 1100 Date Mic MCCALLUM Cosign Signature: Date (if applicable) CC: Normal [facility] CBC W/Diff, Automatedon 03-10 Absolute Lymph 1.93 X10 3/uL Normal 0.83-4.51 [facility] Comment on above: Order Comment: Order Date: 03/26/24 Order Info: 0184-1 - CBCD Performed By: #### L 100.0100 #### [facility] Laboratory [address] [place], [address] Absolute Neut 4.9 X10 3/uL Normal 2.0-7.7 [facility] Comment on above: Order Comment: Order Date: 03/26/24 Order Info: 0184-1 - CBCD Performed By: #### L 100.0100 #### [facility] [address] [place], [address] Basophils/100 WBC (Bld) 0.5 % Normal 0-1 [facility] Comment on above: Order Comment: Order Date: 03/26/24 Order Info: 4-1 - CBCD Performed By: #### L 100.0100 #### [facility] [address] [place], [address] Eosinophils/100 WBC (Bld) 2.7 % Normal 0-5 [facility] Comment on above: Order Comment: Order Date: 03/26/24 Order Info: 4-1 - CBCD Performed By: #### L 100.0100 #### [facility] [address] [place], [address] Erythrocyte distribution width (RBC) [Ratio] 12.5 % Normal 11.6-14.6 [facility] Comment on above: Order Comment: Order Date: 03/26/24 Order Info: 4-1 - CBCD Performed By: #### L 100.0100 #### [facility] [address] [place], [address] Hematocrit (Bld) [Volume fraction] 41.8 % Normal 40-54 [facility] Comment on above: Order Comment: Order Date: 03/26/24 Order Info: 0184-1 - CBCD Performed By: #### L 100.0100 #### [facility] [address] [place], [address] Hemoglobin (Bld) [Mass/Vol] 14.1 g/dL Normal 13.0-16.5 [facility] Comment on above: Order Comment: Order Date: 03/26/24 Order Info: 0184-1 - CBCD Performed By: #### L 100.0100 #### [facility] [address] [place], [address] IG% 0.300 Normal 0.0-0.9 [facility] Comment on above: Order Comment: Order Date: 03/26/24 Order Info: 0184-1 - CBCD Result Comment: IG% - Immature Granulocytes (promyelocytes, myelocytes and metamyelocytes) > 1% indicates that a LEFT SHIFT is Present. Performed By: #### L 100.0100 #### [facility] [address] [place], [address] Lymphocytes/100 WBC (Bld) 25.1 % Normal 19-41 [facility] Comment on above: Order Comment: Order Date: 03/26/24 Order Info: 0184- - CBCD Performed By: #### L 100.0100 #### [facility] [address] [place], [address] MCH (RBC) [Entitic mass] 29.9 pg Normal 27.0-32.0 [facility] Comment on above: Order Comment: Order Date: 03/26/24 Order Info: 0184- - CBCD Performed By: #### L 100.0100 #### [facility] [address] [place], [address] MCHC (RBC) [Mass/Vol] 33.7 g/dL Normal 32-36 [facility] Comment on above: Order Comment: Order Date: 03/26/24 Order Info: 0184-1 - CBCD Performed By: #### L 100.0100 #### [facility] [address] [place], [address] MCV (RBC) [Entitic vol] 88.6 fL Normal 80-94 [facility] Comment on above: Order Comment: Order Date: 03/26/24 Order Info: 0184-1 - CBCD Performed By: #### L 100.0100 #### [facility] [address] [place], [address] Monocytes/100 WBC (Bld) 7.7 % Normal 0-10 [facility] Comment on above: Order Comment: Order Date: 03/26/24 Order Info: 018-1 - CBCD Performed By: #### L 100.0100 #### [facility] [address] [place], [address] Neutrophils/100 WBC (Bld) 63.7 % Normal 47-70 [facility] Comment on above: Order Comment: Order Date: 03/26/24 Order Info: 0184- - CBCD Performed By: #### L 100.0100 #### [facility] [address] [place], [address] Nucleated RBC (Bld) [#/Vol] 0 10*3/uL Normal 0-5 [facility] Comment on above: Order Comment: Order Date: 03/26/24 Order Info: 018- - CBCD Performed By: #### L 100.0100 #### [facility] [address] [place], [address] Platelet mean volume (Bld) [Entitic vol] 9.7 fL Normal 6.2-12.0 [facility] Comment on above: Order Comment: Order Date: 03/26/24 Order Info: 018- - CBCD Performed By: #### L 100.0100 #### [facility] [address] [place], [address] Platelets (Bld) [#/Vol] 333 10*3/uL Normal 150-450 [facility] Comment on above: Order Comment: Order Date: 03/26/24 Order Info: 018- - CBCD Performed By: #### L 100.0100 #### [facility] [address] [place], [address] RBC (Bld) [#/Vol] 4.72 10*6/uL Normal 4.6-6.2 [facility] Comment on above: Order Comment: Order Date: 03/26/24 Order Info: 018-1 - CBCD Performed By: #### L 100.0100 #### [facility] Laboratory [address] [place], [address] RDW SD 40.9 fl Normal 35.1-43.9 [facility] Comment on above: Order Comment: Order Date: 03/26/24 Order Info: 0184-1 - CBCD Performed By: #### L 100.0100 #### [facility] Laboratory [address] [place], [address] WBC (Bld) [#/Vol] 7.7 10*3/uL Normal 4.4-11.0 [facility] Comment on above: Order Comment: Order Date: 03/26/24 Order Info: 0184-1 - CBCD Performed By: #### L 100.0100 #### [facility] Laboratory [address] [place], [address] .Auto Diffon 03-25-2024 Basophil, Absolute 0.0 10 3/mcL Normal 0.0-0.2 [facility] Comment on above: Performed By: #### C ARNOL KITCHEN MDW, ANEU, TROPHS, GFR, BMP #### [address] [address] Basophils/100 WBC (Bld) 0.5 % Normal 0.0-2.5 [facility] Comment on above: Performed By: #### C ARNOL KITCHEN MDW, ANEU, TROPHS, GFR, BMP #### [address] [address] Eosinophil, Absolute 0.2 10 3/mcL Normal 0.0-0.4 [facility] Comment on above: Performed By: #### C ARNOL KITCHEN MDW, ANEU, TROPHS, GFR, BMP #### [address] [address] Eosinophils/100 WBC (Bld) 2.9 % Normal 0.0-7.0 [facility] Comment on above: Performed By: #### C ARNOL KITCHEN MDW, ANEU, TROPHS, GFR, BMP #### [address] [address] Lymphocyte, Absolute 1.5 10 3/mcL Normal 0.8-3.9 [facility] Comment on above: Performed By: #### C ARNOL KITCHEN MDW, ANEU, TROPHS, GFR, BMP #### [address] [address] Lymphocytes/100 WBC (Bld) 21.6 % Normal 10.0-50.0 [facility] Comment on above: Performed By: #### C ARNOL KITCHEN MDW, ANEU, TROPHS, GFR, BMP #### [address] [address] Monocyte, Absolute 0.4 10 3/mcL Normal 0.2-1.0 [facility] Comment on above: Performed By: #### C ARNOL KITCHEN MDW, ANEU, TROPHS, GFR, BMP #### [address] [address] Monocytes/100 WBC (Bld) 5.7 % Normal 1.7-13.0 [facility] Comment on above: Performed By: #### C ARNOL KITCHEN MDW, ANEU, TROPHS, GFR, BMP #### [address] [address] Neutrophils/100 WBC (Bld) 69.3 % Normal 37.0-80.0 [facility] Comment on above: Performed By: #### C ARNOL KITCHEN MDW, ANEU, TROPHS, GFR, BMP #### [address] [address] .GFRon 03-25-2024 GFR 103 ml/min/1.73sqm Normal [facility] Comment on above: Result Comment: GFR Population mean for , Non- Americans Ages 20-29 = 116 mL/min/1.73 sq.m. Ages 30-39 = 107 mL/min/1.73 sq.m. Ages 40-49 = 99 mL/min/1.73 sq.m. Ages 50-59 = 93 mL/min/1.73 sq.m. Ages 60-69 = 85 mL/min/1.73 sq.m. Ages 70+ = 75 mL/min/1.73 sq.m. Chronic Kidney Disease: Less than 60 mL/min/1.73 square meters End Stage Renal Disease: Less than 15 mL/min/1.73 square meters Performed By: #### C ARNOL KITCHEN MDW, ANEU, TROPHS, GFR, BMP #### [address] [address] GFR Non- 85 ml/min/1.73sqm Normal [facility] Comment on above: Result Comment: GFR Population mean for , Non- Americans Ages 20-29 = 116 mL/min/1.73 sq.m. Ages 30-39 = 107 mL/min/1.73 sq.m. Ages 40-49 = 99 mL/min/1.73 sq.m. Ages 50-59 = 93 mL/min/1.73 sq.m. Ages 60-69 = 85 mL/min/1.73 sq.m. Ages 70+ = 75 mL/min/1.73 sq.m. Chronic Kidney Disease: Less than 60 mL/min/1.73 square meters End Stage Renal Disease: Less than 15 mL/min/1.73 square meters Performed By: #### C ARNOL KITCHEN MDW, ANEU, TROPHS, GFR, BMP #### [address] [address] .MDWon 03-25-2024 Monocyte Distribution Width 16.39 Normal 0.00-20.00 [facility] Comment on above: Result Comment: For ED adult patients suspected of sepsis, MDW<=20.0 does not rule out sepsis or risk of sepsis Performed By: #### C ARNOL KITCHEN MDW, ANEU, TROPHS, GFR, BMP #### [address] [address] .NEUABSon 03-25-2024 Neutrophil, Absolute 4.9 10 3/mcL Normal 2.9-6.2 [facility] Comment on above: Performed By: #### C ARNOL KITCHEN MDW, ANEU, TROPHS, GFR, BMP #### [address] [address] BMPon 03-25-2024 BUN/Creatinine Ratio 11 ratio Normal 7-27 [facility] Comment on above: Performed By: #### C ARNOL KITCHEN MDW, ANEU, TROPHS, GFR, BMP #### [address] [address] Calcium [Mass/Vol] 9.2 mg/dL Normal 8.4-10.2 [facility] Comment on above: Performed By: #### C ARNOL KITCHEN MDW, ANEU, TROPHS, GFR, BMP #### [place] [id number] Chloride [Moles/Vol] 102 mmol/L Normal 98-107 [facility] Comment on above: Performed By: #### C ARNOL KITCHEN MDW, MARIN, TROPHS, GFR, BMP #### [address] [address] CO2 [Moles/Vol] 27 mmol/L Normal 22-29 [facility] Comment on above: Performed By: #### C ARNOL KITCHEN MDW, ANEU, TROPHS, GFR, BMP #### [address] [address] Creatinine [Mass/Vol] 1.00 mg/dL Normal 0.70-1.30 [facility] Comment on above: Result Comment: Test ing performed on Siemens Dimension EXL analyzer using a modified kinetic Oscar technique. Performed By: #### C ARNOL KITCHEN MDW, MARIN, TROPHS, GFR, BMP #### [address] [address] Electrolyte Balance 11.0 mEq/L Normal 4.0-15.0 [facility] Comment on above: Performed By: #### C ARNOL KITCHEN MDW, ANEU, TROPHS, GFR, BMP #### [address] [address] Glucose [Mass/Vol] 159 mg/dL High 70-105 [facility] Comment on above: Performed By: #### C ARNOL KITCHEN MDW, ANEU, TROPHS, GFR, BMP #### [address] [address] Potassium [Moles/Vol] 4.0 mmol/L Normal 3.5-5.1 [facility] Comment on above: Performed By: #### C ARNOL KITCHEN MDW, ANEU, TROPHS, GFR, BMP #### [place] [id number] Sodium [Moles/Vol] 140 mmol/L Normal 136-145 [facility] Comment on above: Performed By: #### C ARNOL KITCHEN MDW, ANEU, TROPHS, GFR, BMP #### [place] [address] Urea nitrogen [Mass/Vol] 11 mg/dL Normal 7-18 [facility] Comment on above: Performed By: #### C ARNOL KITCHEN MDW, ANEU, TROPHS, GFR, BMP #### [address] [address] CBCon 03-25-2024 Erythrocyte distribution width (RBC) [Ratio] 13.4 % Normal 11.5-14.5 [facility] Comment on above: Performed By: #### C ARNOL KITCHEN MDW, ANEU, TROPHS, GFR, BMP #### [place] [id number] Hematocrit (Bld) [Volume fraction] 41.7 % Low 42.0-52.0 [facility] Comment on above: Performed By: #### C ARNOL KITCHEN MDW, ANEU, TROPHS, GFR, BMP #### [place] [phone] Hgb 14.5 G/dL Normal 14.0-18.0 [facility] Comment on above: Performed By: #### C ARNOL KITCHEN MDW, ANEU, TROPHS, GFR, BMP #### [place] [phone] MCH (RBC) [Entitic mass] 31.1 pg Normal 27.0-31.2 [facility] Comment on above: Performed By: #### C ARNOL KITCHEN MDW, ANEU, TROPHS, GFR, BMP #### [address] [address] MCHC 34.9 G/dL Normal 31.8-35.4 [facility] Comment on above: Performed By: #### C ARNOL KITCHEN MDW, ANEU, TROPHS, GFR, BMP #### [place] [phone] MCV (RBC) [Entitic vol] 89.1 fL Normal 80.0-94.0 [facility] Comment on above: Performed By: #### C ARNOL KITCHEN MDW, ANEU, TROPHS, GFR, BMP #### [place] [address] Platelet 291 10 3/mcL Normal 130-400 [facility] Comment on above: Performed By: #### C ARNOL KITCHEN MDW, ANEU, TROPHS, GFR, BMP #### [place] [address] Platelet mean volume (Bld) [Entitic vol] 6.8 fL Low 7.4-10.4 [facility] Comment on above: Performed By: #### C ARNOL KITCHEN MDW, ANEU, TROPHS, GFR, BMP #### [place] [phone] RBC 4.68 10 6/mcL Normal 4.04-6.13 [facility] Comment on above: Performed By: #### C ARNOL KITCHEN MDW, ANEU, TROPHS, GFR, BMP #### [place] [phone] WBC 7.1 10 3/mcL Normal 4.6-10.8 [facility] Comment on above: Performed By: #### C ARNOL KITCHEN MDW, ANEU, TROPHS, GFR, BMP #### [address] [place] [address] CT HEAD OR BRAIN W/O CONTRAS Ton 03-25-2024 CT HEAD OR BRAIN W/O CONTRAST ORIGINAL EXAMINATION: CT OF THE HEAD WITHOUT CONTRAST 03/25/2024 8:51 am TECHNIQUE: CT of the head was performed without the administration of intravenous contrast. Automated exposure control, iterative reconstruction, and/or weight based adjustment of the mA/kV was utilized to reduce the radiation dose to as low as reasonably achievable. COMPARISON: None. HISTORY: ORDERING SYSTEM PROVIDED HISTORY: Reason for Exam: syncopal episode FINDINGS: BRAIN/VENTRICLES: There is no acute intracranial hemorrhage, mass effect or midline shift. No abnormal extra-axial fluid collection. The santos-white differentiation is maintained without evidence of a large acute territorial infarct. There is no evidence of hydrocephalus. Partially empty sella. ORBITS: The visualized portion of the orbits demonstrate no acute abnormality. SINUSES: The visualized paranasal sinuses and mastoid air cells demonstrate no acute abnormality. SOFT TISSUES/SKULL: No acute abnormality of the visualized skull or soft tissues. IMPRESSION: No acute intracranial hemorrhage, hydrocephalus, or mass effect. Partially empty sella which could be incidental or related to intracranial hypertension. Interpreted by: Sharon Polk MD Preliminary Report By: Sharon Polk MD Electronically signed By Sharon Polk MD Dictated Date: 03/25/2024 8:53:05 AM Prelim Date: 03/25/2024 8:56:40 AM Sign Date: 03/25/2024 8:56:40 AM Ordering Provider: DANIELLE Wayne [facility] LABORATORYOrdered By: SYSTEM SYSTEM on 03-25-2024 Basophils (Bld) [#/Vol] 0.0 103/mcL Normal 0.0 - 0.2 10^3/mcL AO Workflow SS Basophils/100 WBC (Bld) 0.5 % Normal 0.0 - 2.5 % AO Workflow SS Calcium [Mass/Vol] 9.2 mg/dL Normal 8.4 - 10. 2 mg/dL AO ADM SS Chloride [Moles/Vol] 102 mmol/L Normal 98 - 10 7 mmol/L AO ADM SS CO2 [Moles/Vol] 27 mmol/L Normal 22 - 29 mmol/L AO ADM SS Creatinine [Mass/Vol] 1.00 mg/dL Normal 0.70 - 1.30 mg/dL AO ADM SS Comment on above: Interpretive Data: T esting performed on Siemens Dimension EXL analyzer using a modified kinetic Oscar technique. Electrolyte Balance 11.0 mEq/L Normal 4.0 - 15 .0 mEq/L AO ADM SS Eosinophil, Absolute 0.2 103/mcL Normal 0.0 - 0 .4 10^3/mcL AO Workflow SS Eosinophils/100 WBC (Bld) 2.9 % Normal 0.0 - 7.0 % AO Workflow SS Erythrocyte distribution width (RBC) [Ratio] 13.4 % Normal 11.5 - 14.5 % AO Workflow SS GFR/1.73 sq M.predicted among blacks MDRD (S/P/Bld) [Vol rate/Area] 103 ml/min/1.73sqm Invalid Interpretation Code AO Chemistry S Comment on above: Interpretive Data: GFR Population mean for , Non- Americans Ages 20-29 = 116 mL/min/1.73 sq.m. Ages 30-39 = 107 mL/min/1.73 sq.m. Ages 40-49 = 99 mL/min/1.73 sq.m. Ages 50-59 = 93 mL/min/1.73 sq.m. Ages 60-69 = 85 mL/min/1.73 sq.m. Ages 70+ = 75 mL/min/1.73 sq.m. Chronic Kidney Disease: Less than 60 mL/min/1.73 square meters End Stage Renal Disease: Less than 15 mL/min/1.73 square meters GFR/1.73 sq M.predicted among non-blacks MDRD (S/P/Bld) [Vol rate/Area] 85 ml/min/1.73sqm Invalid Interpretation Code AO Chemistry S Comment on above: Interpretive Data: GFR Population mean for , Non- Americans Ages 20-29 = 116 mL/min/1.73 sq.m. Ages 30-39 = 107 mL/min/1.73 sq.m. Ages 40-49 = 99 mL/min/1.73 sq.m. Ages 50-59 = 93 mL/min/1.73 sq.m. Ages 60-69 = 85 mL/min/1.73 sq.m. Ages 70+ = 75 mL/min/1.73 sq.m. Chronic Kidney Disease: Less than 60 mL/min/1.73 square meters End Stage Renal Disease: Less than 15 mL/min/1.73 square meters Glucose [Mass/Vol] 159 mg/dL High 70 - 105 mg/dL AO ADM SS Hematocrit (Bld) [Volume fraction] 41.7 % Low 42.0 - 52.0 % AO Workflow SS Hemoglobin (Bld) [Mass/Vol] 14.5 G/dL Normal 14.0 - 18.0 G/dL AO Workflow SS Lymphocytes (Bld) [#/Vol] 1.5 103/mcL Normal 0.8 - 3.9 10^3/mcL AO Workflow SS Lymphocytes/100 WBC (Bld) 21.6 % Normal 10.0 - 50.0 % AO Workflow SS MCH (RBC) [Entitic mass] 31.1 pg Normal 27.0 - 31.2 pg AO Workflow SS MCHC 34.9 G/dL Normal 31.8 - 35.4 G/dL AO Workflow SS MCV (RBC) [Entitic vol] 89.1 fL Normal 80.0 - 94.0 fL AO Workflow SS Monocyte distribution width Auto (Bld) [Entitic vol] 16.39 1 Normal 0.00 - 20.00 AO Workflow SS Comment on above: Result Comment: For ED adult patients suspected of sepsis, MDW<=20.0 does not rule out sepsis or risk of sepsis Monocytes (Bld) [#/Vol] 0.4 103/mcL Normal 0.2 - 1.0 10^3/mcL AO Workflow SS Monocytes/100 WBC (Bld) 5.7 % Normal 1.7 - 13.0 % AO Workflow SS Neutrophils (Bld) [#/Vol] 4.9 103/mcL Normal 2.9 - 6.2 10^3/mcL AO Workflow SS Neutrophils/100 WBC (Bld) 69.3 % Normal 37.0 - 80.0 % AO Workflow SS Platelet mean volume (Bld) [Entitic vol] 6.8 fL Low 7.4 - 10.4 fL AO Workflow SS Platelets (Bld) [#/Vol] 291 103/mcL Normal 130 - 400 10^3/mcL AO Workflow SS Potassium [Moles/Vol] 4.0 mmol/L Normal 3.5 - 5.1 mmol/L AO ADM SS RBC (Bld) [#/Vol] 4.68 106/mcL Normal 4.04 - 6.1 3 10^6/mcL AO Workflow SS Sodium [Moles/Vol] 140 mmol/L Normal 136 - 145 mmol/L AO ADM SS Troponin I.cardiac DL <= 0.01 ng/mL [Mass/Vol] ng/L Normal 0 - 76 ng/L AO ADM SS Comment on above: Interpretive Data: H igh Sensitive Troponin I Reference Ranges: Female: 0-51 ng/L Male: 0-76 ng/L Testing performed on [email or web address] using a homogeneous sandwich chemiluminescent immunoassay based on [employer] technology. Urea nitrogen [Mass/Vol] 11 mg/dL Normal 7 - 18 mg/dL AO ADM SS Urea nitrogen/Creatinine [Mass ratio] 11 ratio Normal 7 - 27 ratio AO ADM SS WBC (Bld) [#/Vol] 7.1 103/mcL Normal 4.6 - 10.8 10^3/mcL AO Workflow [facility] High Sensitivity Troponin I <4 Normal 0-76 [facility] Comment on above: Result Comment: High Sensitive Troponin I Reference Ranges: Female: 0-51 ng/L Male: 0-76 ng/L Testing performed on [email or web address] EXL using a homogeneous sandwich chemiluminescent immunoassay based on [employer] technology. Performed By: #### C IMTIAZ, DELORIS AMBROSE, MARIN, DIANAS, GFR, BMP #### [address] [address] Urgent Care Visit Reporton 0 03-25-2024 Urgent Care Visit Report [facility] [address], [address] [place] [address] OFFICE VISIT Date of Service: 03/25/24 MR#: [id number] Acct: [id number] Name: YOMI ALBERTO Rep #: [id number] : 1990 Provider: XENA Frank Age/Sex: 33/M Location: [facility] Status: Signed Intake Vital Signs 07/29/21 08:33 03/25/24 13:44 Height 5 ft 8 in BP 110/64 Blood Pressure Location Lt brachial Position Sitting Respiration 16 Pulse 62 Pulse Source NIBP Temp 98.0 F Temp Source Temporal Pulse Oximetry (%) 96 Oxygen Delivery Method room air Intake Visit Reasons: FALL INJURY/WILL-AILYN Chief Complaint: covid monoclonal Allergies No Known Allergies Allergy (Verified 07/27/21 13:43) [facility] Medical History (Updated 03/25/24 @ 12:10 by Mic MCCALLUM, PA) Syncopal episodes Concussion with loss of consciousness Tooth fracture Facial contusion Forehead contusion HPI HPI Chief Complaint: covid monoclonal Details: YOMI ALBERTO, is a 33 M who presents to the office today for follow-up with his now clinic at employer's request after having been evaluated earlier this morning at [facility] ED status post fall at work. 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 No new environmental exposures or fumes upon questioning. After the time of the injury, when the company nurse and coworker came to patient's side, he was transported to [facility] ED where head CT was performed and was negative per patient and was released same day. He has since made follow-up appointments with PCP as well as dentist for tomorrow, nonetheless employer would like him to be evaluated at the [facility] clinic today as well. At his time of presentation in the now clinic today, again he notes only mild aching 3/10 headache without vision or hearing changes and currently without lightheadedness or dizziness or nausea/vomiting and no complaints of chest pain/shortness of breath/dyspnea on exertion. No complaints of neck pain or upper extremity radicular complaints upon questioning. No [id number] products taken to assist. No other associated symptoms and no other alleviating/aggravating factors. PMH hypertension (treated with metoprolol), and anxiety/depression (treated with escitalopram) ROS Const Constitutional: No other (As above) Exam Const General: cooperative, healthy appearing and no acute distress Orientation: alert and awake [facility] Head: normal to inspection Ears: hearing grossly normal bilaterally, external ears normal, TM's normal bilaterally and EAC's normal Nose: external nose normal, nares normal, septum normal and no nasal discharge Face and sinus: normal facial exam (Except right facial and right forehead contusions with tender to touch same), sinuses nontender and face symmetric Mouth: oral mucosae normal, lip normal, tongue normal and oropharynx normal Teeth and gingiva: dentition normal (Except right upper incisor dental fracture), gingiva normal and abnormal tooth or associated gingiva Throat: posterior oropharynx normal and uvula midline Eyes General: appearance normal, both eyes and all related structures Neck Neck: normal visual inspection, full ROM, no lymphadenopathy, no meningeal signs and supple Neck mass: No Thyroid: thyroid normal Lymphatic: no lymphadenopathy noted Chest Chest palpation inspection: normal inspection of the chest Resp Effort Inspection: normal respiratory effort and able to speak in complete sentences Auscultation: Bilateral: Clear to Auscultation Cardio Palpation: normal PMI Rate: regular rate Rhythm: regular rhythm Heart Sounds: S1 normal, S2 normal, no gallops, no murmurs and no rubs Pulses: radial pulses present GI Inspection: normal to inspection Palpation: soft Musc Cervical Spine: normal cervical lordosis and cervical ROM normal; No cervical muscular tenderness Skin General: no rashes or lesions noted Neuro General: patient alert, patient awake, patient oriented x3 and gait normal Cognition: normal cognition Speech: speech normal Gait: normal gait Motor: muscle tone normal throughout Sensory Exam: no sensory deficits noted Extrem General: normal to inspection Psych Appearance: grossly normal Mental Status: mental status grossly normal Mood: congruent mood Affect: normal affect Speech and Movement: speech and movement normal Attitude: cooperative Thought Process: normal Thought Content: normal Judgment: judgment good Coding Level of Care Code Off vis,est,level 3 Diagnoses Forehead contusion S00.83X (more content not included)... Normal [facility] XR CHEST 1 VIEWon 03-25-2024 XR CHEST 1 VIEW ORIGINAL EXAMINATION: ONE XRAY VIEW OF THE CHEST 03/25/2024 8:44 am COMPARISON: None. HISTORY: ORDERING SYSTEM PROVIDED HISTORY: Reason for Exam: syncopal episode FINDINGS: The cardiomediastinal silhouette is normal. No focal consolidation, pleural effusion, vascular congestion, or pneumothorax. Monitoring leads overlie the image. Degenerative changes noted in the spine. IMPRESSION: No acute radiographic findings. Interpreted by: Sharon Polk MD Preliminary Report By: Sharon Polk MD Electronically signed By Sharon Polk MD Dictated Date: 03/25/2024 8:49:17 AM Prelim Date: 03/25/2024 8:49:50 AM Sign Date: 03/25/2024 8:49:50 AM Ordering Provider: DANIELLE BANSAL Normal [facility] Basophil percentageon 2021 Chloride [Moles/Vol] 105 mmol/L 98-107 [facility] Work Phone: Cholesterol [Mass/Vol] 221 mg/dL <200 [facility] Work Phone: Comment on above: <200 mg/dL Desirable 200-240 mg/dL Borderline >240 mg/dL High Risk Glucose [Mass/Vol] 90 mg/dL 74-106 [facility] Work Phone: Potassium [Moles/Vol] 4.0 mmol/L 3.5-5.1 [facility] Work Phone: Sodium [Moles/Vol] 137 mmol/L 136-145 [facility] Work Phone: Triglyceride [Mass/Vol] 111 mg/dL <199 [facility] Work Phone: Comment on above: The drugs N-Acetylcy steine and Metamizole may falsely depress this assay.Serum Triglycerides Reference Interval Normal <150 mg/dL Borderline high 150 - 199 mg/dL High 200 - 499 mg/dL Very High > or = 500 mg/dL Laboratory - Chemistry and C hemistry - challengeon 02-08-2022 CO2 [Moles/Vol] 28.0 mmol/L 21.0-32.0 [facility] Work Phone: Urea nitrogen/Creatinine [Mass ratio] 15.5 mg/mg 10-20 [facility] Work Phone: Laboratory - Microbiology an d Antimicrobial susceptibilityon 02-08-2022 SARS-CoV-2 (COVID-19) RNA NIURKA+probe Ql (Unsp spec) Not detected Not Detect [facility] Work Phone: Comment on above: Normal Reference Ran ge: Not DetectedMethod:(RT-PCR) real-time reverse transcriptase PCRLuminex CHELSEA Instrument*The Food and Drug Administration (FDA) has issued an Emergency Use Authorization (EAU) for the CHELSEA SARS-CoV-2 Assay for the rapid detection of the virus that causes COVID-19. This test has been validated, but the [facility] independent review of this validation is pending.*Negative results do not preclude infection and should not be used as the sole basis for treatment or patient management. Optimum specimen types and timing for peak viral levels during infections caused by SARS-CoV-2 have not been determined. Collection of multiple specimens from the same patient may be necessary to detect the virus. The possibility of a false negative result should be considered if the patient has clinical presentation or has had recent exposure. No Panel Informationon 02-08 Estimated GFR (MDRD) Amer 114 mL/min >60 [facility] Work Phone: Comment on above: GFR Calc Estimated GFR (MDRD) Non-Af Amer 94 mL/min >60 [facility] Work Phone: Comment on above: Non- GFR Calc Serum or plasma calcium elvira urement (mass/volume)on 02-08-2022 Calcium [Mass/Vol] 9.4 mg/dL 8.5-10.1 [facility] Work Phone: Serum or plasma cholesterol in HDL measurement (mass/volume)on 02-08-2022 Cholesterol in HDL [Mass/Vol] 50 mg/dL >40 [facility] Work Phone: Comment on above: The drugs N-Acetylcy steine and Metamizole may falsely depress this assay. Reference Range HDL <40 mg/dL Low HDL Cholesterol HDL >or= 60 mg/dL High HDL Cholesterol Serum or plasma cholesterol in VLDL measurement (mass/volume)on 02-08-2022 Cholesterol in VLDL [Mass/Vol] 22 mg/dL 5-40 [facility] Work Phone: Serum or plasma creatinine m easurement (mass/volume)on 02-08-2022 Creatinine [Mass/Vol] 0.97 mg/dL 0.70-1.30 [facility] Work Phone: Comment on above: The validity of the calculated GFR & GFRAA in patients over 70 years has not been determined. Clinical correlation is essential. Serum or plasma low density lipoprotein (LDL) cholesterol measurement (mass/volume)on 08-02-2022 Cholesterol in LDL [Mass/Vol] 149 mg/dL 0-130 [facility] Work Phone: Serum or plasma urea nitroge n measurement (mass/volume)on 02-08-2022 Urea nitrogen [Mass/Vol] 15 mg/dL 7-18 [facility] Work Phone: Thin prep Papanicolaou smear with manual screeningon 02-08-2022 Thin prep Papanicolaou smear with manual screening 4 5-15 [facility] Work Phone: Vital Signs Date Time Vital Sign Value Performing Clinician Facility 07-07-2024 08:14-0500 Blood Pressure Cuff Size SUBHASH MACK DO [facility] 07-07-2024 08:14-0500 Blood Pressure Location SUBHASH MACK DO [facility] 07-07-2024 08:14-0500 Blood Pressure Method SUBHASH COLÓNYasir D O [facility] 07-07-2024 08:14-0500 Body temperature 97.88 [degF] SUBHASH MACK DO [facility] 07-07-2024 08:14-0500 Diastolic Blood Pressure Non-Invasive 69 mm[Hg] SUBHASH COLÓNT DO [facility] 07-07-2024 08:14-0500 Heart rate 102 /min SUBHASH COLÓNT DO [facility] 07-07-2024 08:14-0500 Respiratory rate 16 /min SUBHASH COLÓNT DO [facility] 07-07-2024 08:14-0500 Systolic Blood Pressure Non-Invasive 100 mm[Hg] SUBHASH COLÓNT DO [facility] 06-28-2024 13:34-0500 Body height 170.2 cm Noa Kiser MD Work Phone: [facility] 06-28-2024 13:34-0500 Body mass index (BMI) [Ratio] 33.11 kg/m2 Noa Kiser MD Work Phone: [facility] 06-28-2024 13:34-0500 Body temperature 98.49 [degF] Noa Kiser MD Work Phone: [facility] 06-28-2024 13:34-0500 Body weight 95.89 kg Noa Kiser MD Work Phone: [facility] 06-28-2024 13:34-0500 Diastolic blood pressure 62 mm[Hg] Noa Kiser MD Work Phone: [facility] 06-28-2024 13:34-0500 Heart rate 76 /min Noa Kiser MD Work Phone: [facility] 06-28-2024 13:34-0500 SaO2% (BldA) [Mass fraction] 94 % Noa Kiser MD Work Phone: [facility] 06-28-2024 13:34-0500 Systolic blood pressure 132 mm[Hg] Noa Kiser MD Work Phone: [facility] 05-10-2024 10:28-0400 Body weight 95.3 kg Peggy Staley MD Work Phone: [facility] 05-10-2024 10:28-0400 Diastolic blood pressure 62 mm[Hg] Peggy Staley MD Work Phone: [facility] 05-10-2024 10:28-0400 Heart rate 51 /min Peggy Staley MD Work Phone: [facility] 05-10-2024 10:28-0400 Respiratory rate 16 /min Peggy Staley MD Work Phone: [facility] 05-10-2024 10:28-0400 SaO2% (BldA) [Mass fraction] 99 % Peggy Staley MD Work Phone: [facility] 05-10-2024 10:28-0400 Systolic blood pressure 102 mm[Hg] Peggy Staley MD Work Phone: [facility] 03-25-2024 09:35-0400 Blood Pressure Location DANIELLE BANSAL MD [facility] 03-25-2024 09:35-0400 Blood Pressure Method DANIELLE BANSAL MD [facility] 03-25-2024 09:35-0400 Diastolic Blood Pressure Non-Invasive 70 mm[Hg] DANIELLE BANSAL MD [facility] 03-25-2024 09:35-0400 Heart rate 66 /min DANIELLE BANSAL MD [facility] 03-25-2024 09:35-0400 Respiratory rate 18 /min DANIELLE BANSAL MD [facility] 03-25-2024 09:35-0400 Systolic Blood Pressure Non-Invasive 110 mm[Hg] DANIELLE BANSAL MD [facility] 03-25-2024 07:52-0400 Blood Pressure Location DANIELLE BANSAL MD [facility] 03-25-2024 07:52-0400 Blood Pressure Method DANIELLE BANSAL MD [facility] 03-25-2024 07:52-0400 Body temperature 97.88 [degF] DANIELLE BANSAL MD [facility] 03-25-2024 07:52-0400 Diastolic Blood Pressure Non-Invasive 64 mm[Hg] DANIELLE BANSAL MD [facility] 03-25-2024 07:52-0400 Heart rate 60 /min DANIELLE BANSAL MD [facility] 03-25-2024 07:52-0400 Respiratory rate 18 /min DANIELLE BANSAL MD [facility] 03-25-2024 07:52-0400 Systolic Blood Pressure Non-Invasive 103 mm[Hg] DANIELLE BANSAL MD [facility] Encounters Encounter Date Encounter Type Care Provider Facility Start: 09-24-2024 End: 11-25-2024 Follow-up encounter Charissa Wagner RN Endocrinology Start: 07-19-2024 End: 07-19-2024 ambulatory NOA KISER Facility:[facility] Start: 07-19-2024 End: 07-19-2024 Subsequent hospital visit by physician [facility] Work Phone: Radiology Comment on above: Asymmetrical thyroid [E07.9] Start: 07-07-2024 End: 07-07-2024 Emergency department patient visit SUBHASH MACK DO [facility] Start: 06-28-2024 End: 06-28-2024 ambulatory NOA [facility]IN [facility] Facility:[facility] Start: 06-28-2024 End: 06-28-2024 Patient encounter procedure Noa Kiser MD Work Phone: Endocrinology Comment on above: Empty sella (HCC) (P rimary Dx); Asymmetrical thyroid Start: 06-11-2024 End: 06-11-2024 Telephone encounter Peggy Staley MD Work Phone: Neurology Comment on above: Appointment (Called to schedule consult to headache clinic. LVM with phone number to call and schedule) Start: 06-10-2024 End: 06-12-2024 Telephone encounter Peggy Staley MD Work Phone: [facility] Comment on above: Results Start: 06-07-2024 End: 06-07-2024 Orders Only Peggy Staley MD Work Phone: Neurology Comment on above: IIH (idiopathic intr acranial hypertension) (Primary Dx) Benign intracranial hypertension [G93.2] Start: 05-10-2024 End: 05-10-2024 ambulatory PEGGY STALEY Facility:[facility] Start: 05-10-2024 End: 05-10-2024 Patient encounter procedure Peggy Staley MD Work Phone: Neurology Comment on above: Syncope, unspecified syncope type (Primary Dx); Benign intracranial hypertension; Empty sella (HCC) Start: 03-25-2024 End: 03-26-2024 ambulatory [facility] Facility:[facility] Start: 03-25-2024 End: 03-25-2024 Emergency department patient visit DANIELLE BANSAL MD [facility] Start: 02-08-2022 End: 02-08-2022 Patient encounter procedure [facility] [place] Procedures Date Procedure Procedure Detail Performing Clinician Start: 06-07-2024 Mri brain brain stem w/o w/contrast material Peggy Staley MD Work Phone: Plan of Treatment Date Care Activity Detail Author Start: 11-23-2028 Urine microalbumin profile DTaP,Tdap,Td Vaccine (2 - Td or Tdap) [facility] Start: 03-10-2025 Influenza vaccination Influenz a Vaccine (Season Ended) [facility] Start: 10-04-2024 End: 10-04-2024 Patient encounter procedure 10/04/2024 11:20 AM EDT Office Visit Endocrinology [address] [place] [address] Noa Kiser MD [address] [place] [address] 3 MTH F/U Endocrinology Comment on above: 3 MTH F/U Start: 09-27-2024 End: 09-27-2024 Patient encounter procedure 09/27/2024 10:15 AM EDT Office Visit Neurology [address] [place] [address] Syncope, unspecified syncope type [R55] Neurology Comment on above: Syncope, unspecified syncope type [R55] Start: 07-19-2024 End: 07-19-2024 Patient encounter procedure 07/19/2024 10:00 AM EST Appointment Radiology [address] [place] [address] US THYROID/ PARATHYROID Radiology Comment on above: US THYROID/ PARATHYR OID Start: 06-28-2024 End: 09-27-2024 Comprehensive metabolic 2000 panel - Serum or Plasma COMPREHENSIVE METABOLIC PANEL Lab Routine Empty sella ([facility]) Expected: 06/28/2024, Expires: 09/27/2024 [facility] Work Phone: Comment on above: Expected: 06/28/2024 , Expires: 09/27/2024 Start: 06-28-2024 End: 09-27-2024 Corticotropin [Mass/volume] in Plasma ACTH BLD Lab Routine Empty sella ([facility]) Expected: 06/28/2024, Expires: 09/27/2024 [facility] Comment on above: Expected: 06/28/2024 , Expires: 09/27/2024 Start: 06-28-2024 End: 09-27-2024 Cortisol [Mass/volume] in Serum or Plasma CORTISOL, SERUM Lab Routine Empty sella ([facility]) Expected: 06/28/2024, Expires: 09/27/2024 [facility] Comment on above: Expected: 06/28/2024 , Expires: 09/27/2024 Start: 06-28-2024 End: 09-27-2024 Follitropin [Units/volume] in Serum or Plasma FOLLICLE STIMULATING HORMONE Lab Routine Empty sella ([facility]) Expected: 06/28/2024, Expires: 09/27/2024 [facility] Comment on above: Expected: 06/28/2024 , Expires: 09/27/2024 Start: 06-28-2024 End: 09-27-2024 INSULIN LIK GR FAC I INSULIN LIK GR FAC I Lab Routine Empty sella ([facility]) Expected: 06/28/2024, Expires: 09/27/2024 [facility] Comment on above: Expected: 06/28/2024 , Expires: 09/27/2024 Start: 06-28-2024 End: 09-27-2024 Lutropin [Units/volume] in Serum or Plasma LUTEINIZING HORMONE Lab Routine Empty sella ([facility]) Expected: 06/28/2024, Expires: 09/27/2024 [facility] Comment on above: Expected: 06/28/2024 , Expires: 09/27/2024 Start: 06-28-2024 End: 09-27-2024 Prolactin [Mass/volume] in Serum or Plasma PROLACTIN Lab Routine Empty sella ([facility]) Expected: 06/28/2024, Expires: 09/27/2024 [facility] Comment on above: Expected: 06/28/2024 , Expires: 09/27/2024 Start: 06-28-2024 End: 09-27-2024 TESTOSTERONE, BIOAVAILABLE AND TOTAL BY IMMUNOASSAY (ADULT MALES, OR INDIVIDUALS ON TESTOSTERONE THERAPY) TESTOSTERONE, BIOAVAILABLE AND TOTAL BY IMMUNOASSAY (ADULT MALES, OR INDIVIDUALS ON TESTOSTERONE THERAPY) Lab Routine Empty sella ([facility]) Expected: 06/28/2024, Expires: 09/27/2024 [facility] Comment on above: Expected: 06/28/2024 , Expires: 09/27/2024 Start: 06-28-2024 End: 09-27-2024 Thyrotropin [Units/volume] in Serum or Plasma THYROID STIMULATING HORMONE Lab Routine Empty sella ([facility]) Expected: 06/28/2024, Expires: 09/27/2024 [facility] Comment on above: Expected: 06/28/2024 , Expires: 09/27/2024 Start: 06-28-2024 End: 09-27-2024 Thyroxine (T4) free [Mass/volume] in Serum or Plasma T4 FREE/FREE THYROXINE Lab Routine Empty sella ([facility]) Expected: 06/28/2024, Expires: 09/27/2024 [facility] Comment on above: Expected: 06/28/2024 , Expires: 09/27/2024 Start: 06-28-2024 End: 06-28-2024 Patient encounter procedure 06/28/2024 1:40 PM EST Office Visit Endocrinology [address] [place] [address] Noa Kiser MD [address] [place], [place] [address] Empty sella (HCC) [E23.6] Endocrinology Comment on above: Empty sella (HCC) [E 23.6] Start: 06-07-2024 End: 06-07-2024 Patient encounter procedure 06/07/2024 1:00 PM EST Appointment Radiology [address] [place] [address] Benign intracranial hypertension [G93.2] Radiology Comment on above: Benign intracranial hypertension [G93.2] Start: 03-10-2024 Covid-19 Vaccine ( season) Covid-19 Vaccine ( season) [facility] Start: 03-10-2024 Influenza vaccination Influenza Vacc ine (#1) [facility] Start: 2023 Lipid panel Lipid Screening [facility] Start: 02-08-2022 Sars-cov-2 detection by dna/rna [facility]COV-2 [facility] Work Phone: Start: 2007 Hepatitis B Vaccine (1 of 3 - 19+ 3-dose series) Hepatitis B Vaccine (1 of 3 - 19+ 3-dose series) [facility] Start: 2007 Pneumococcal vaccination Pneumococcal Vaccine (1 of 2 - PCV) [facility] Start: 2006 Anxiety Screening Anxiety Screening [facility] Start: 2006 Depression Screening Depression Scre ening [facility] Start: 2006 Hepatitis C screening Hepatitis C Sc reening [facility] Start: 2006 HIV screening HIV Screening [facility] End: 05-10-2025 EPIL EEG ROUTINE EPIL EEG ROUTINE NEUROLOGY Routine Syncope, unspecified syncope type 1 Occurrences starting 05/10/2024 until 05/10/2025 [facility] Comment on above: 1 Occurrences starti ng 05/10/2024 until 05/10/2025 End: 06-09-2025 MR Brain WO and W contrast IV MRI BRAIN WO/W IVCON Radiology Routine Benign intracranial hypertension 1 Occurrences starting 05/10/2024 until 06/09/2025 [facility] Work Phone: Comment on above: 1 Occurrences starti ng 05/10/2024 until 06/09/2025 End: 07-28-2025 US Thyroid gland US THYROID/PARATHYROID Radiology Routine Asymmetrical thyroid 1 Occurrences starting 06/28/2024 until 07/28/2025 [facility] Comment on above: 1 Occurrences starti ng 06/28/2024 until 07/28/2025 US Thyroid gland US THYROID/PARA THYROID Radiology Routine Asymmetrical thyroid 07/19/2024 10:00 AM EST [facility] Work Phone: Immunizations Immunization Date Immunization Notes Care Provider Fa ke 06-27-2019 influenza virus vacc ine, unspecified formulation Peggy Staley MD Work Phone: [facility] Payers Date Payer Category Payer Self-pay [id number] 2024 Unknown [id number] 2023 Private Health Insurance [employer] [id number] 2023 Unknown [id number] 2023 Unknown [id number] 1988 Unknown [id number] 1988 Unknown [id number] Unknown SELF PAY INSURANCE [id number] Unknown SELF PAY INSURANCE [id number] Unknown [id number] Unknown [id number] Unknown [id number] Social History Date Type Detail Facility Tobacco smoking stat [facility] Unknown if ever smoked [facility] Work Phone: Start: 1990 Sex Assigned At Male [facility] Start: 07-06-2015 [facility] History of tobacco use Current smoker [facility] Start: 05-10-2024 Alcoholic beverage intake Not Asked [facility] Start: 05-10-2024 End: 06-28-2024 History of Social function [facility] Start: 05-10-2024 End: 06-28-2024 Tobacco use panel [facility] National Score (1-100), lower number is lower risk 74 [facility] Start: 1990 Sex assigned at Not on file [facility] Tobacco smoking status [facility] Start: 06-28-2024 Tobacco [facility] Occasional tobacco smoker [facility] History of tobacco use Cigarette Smoker [facility] Start: 06-28-2024 Alcoholic beverage intake Current drinker of alcohol (finding) [facility] Start: 06-28-2024 Alcohol Comment [facility] Start: 03-25-2024 Sex Male (finding) [facility] Functional Status Date Assessment Result Facility 07-07-2024 Functional Status Independent [facility] 07-07-2024 Functional Status Ambulation in [place], Ambulation in Room [facility] 03-25-2024 Functional Status Independent [facility] mike [facility] 03-25-2024 Functional Status ID band on, Call device within reach, Bed in low position, Wheels locked, Upper/Half-Length side-rails up, Visitor at bedside, Safety level maintained [facility] Mental Status Date Assessment Result Facility 07-07-2024 Mental Status Orientation Oriented x 4 [facility] 07-07-2024 Mental Status [facility] 03-25-2024 Mental Status Orientation Oriented x 4 [facility] 03-25-2024 Mental Status [facility] Clinical Notes 03-25-2024 to 07-19-2024 Cm Mayen RDMS - 07/19/2024 10:00 AM EST Note Date & Type Note Facility 07-19-2024 History of Present illness Narrative Radiology Service Progress Note PATIENT NAME: Yomi Alberto DATE OF SERVICE: July 19, 2024 TIME: 11:37 AM PATIENT IDENTITY VERIFICATION COMPLETED USING TWO (2) IDENTIFIERS: Name and Date of confirmed by patient verbally. FALL SCREENING: Has the patient had 2 falls in the last year or 1 fall with injury or currently using an Ambulatory Assistive Device (Walker, Cane, Wheelchair, Crutches, etc.)? No PATIENT GENDER DATA: Male PATIENT RELEVANT IMPLANT DATA REVIEWED: Not Applicable PATIENT PRESENTS WITH AN IMPLANTABLE OR ATTACHED SANITIZER: No RADIOLOGY DEPARTMENT: Ultrasound PERIPHERAL IV DATA: Not applicable SIGNED BY: Cm Mayen RDMS [facility] July 19, 2024 11:37 AM documented in this encounter [facility] 07-19-2024 Note HNO ID: [id number] Author: CM MAYEN RDMS Service: ? Author Type: Head Animal Keeper Type: Progress Notes Filed: 07/19/2024 11:37 Note Text: Radiology Service Progress Note PATIENT NAME: Yomi Alberto DATE OF SERVICE: July 19, 2024 TIME: 11:37 AM PATIENT IDENTITY VERIFICATION COMPLETED USING TWO (2) IDENTIFIERS: Name and Date of confirmed by patient verbally. FALL SCREENING: Has the patient had 2 falls in the last year or 1 fall with injury or currently using an Ambulatory Assistive Device (Walker, Cane, Wheelchair, Crutches, etc.)? No PATIENT GENDER DATA: Male PATIENT RELEVANT IMPLANT DATA REVIEWED: Not Applicable PATIENT PRESENTS WITH AN IMPLANTABLE OR ATTACHED SANITIZER: No RADIOLOGY DEPARTMENT: Ultrasound PERIPHERAL IV DATA: Not applicable SIGNED BY: Cm Mayen RDMS RVYasir July 19, 2024 11:37 AM [facility] 07-07-2024 Hospital Discharge instructions Patient Education 07/07/2024 10:21:14 Diet for Vomiting or Diarrhea (Adult) Diet for Vomiting or Diarrhea (Adult) Your symptoms may return or get worse after eating certain foods listed below. If this happens, stop eating these foods until your symptoms ease and you feel better. Once the vomiting stops, follow the steps below. During the first 12 to 24 hours During the first 12 to 24 hours, follow this diet: Drinks. Plain water, sport drinks like electrolyte solutions, soft drinks without caffeine, mineral water (plain or flavored), clear fruit juices, and decaffeinated tea and coffee. Soups. Clear broth. Desserts. Plain gelatin, popsicles, and fruit juice bars. As you feel better, you may add 6 to 8 ounces of yogurt per day. If you have diarrhea, don't have foods or drinks that contain sugar, high-fructose corn syrup, or sugar alcohols. During the next 24 hours During the next 24 hours you may add the following to the above: Hot cereal, plain toast, bread, rolls, and crackers Plain noodles, rice, mashed potatoes, and chicken noodle or rice soup Unsweetened canned fruit (but not pineapple) and bananas Don't eat more than 15 grams of fat a day. Do this by staying away from margarine, butter, oils, mayonnaise, sauces, gravies, fried foods, peanut butter, meat, poultry, and fish. Don't eat much fiber. Stay away from raw or cooked vegetables, fresh fruits (except bananas), and bran cereals. Limit how much caffeine and chocolate you have. Do not use any spices or seasonings except salt. During the next 24 hours Slowly go back to your normal diet, as you feel better and your symptoms ease. 4582-0074 [employer]. [address] [place] [address], [place] [address]. All rights reserved. This information is not intended as a substitute for professional medical care. Always follow your healthcare professional's instructions. Follow Up Care 07/07/2024 08:14:20 With:ORION AGUILAR MD Address: [address] [place] [phone] When:2-4 days [facility] 07-07-2024 Note Discharge Instructions Thank you for allowing [facility] to assist you with your healthcare needs. The following is important discharge information regarding your hospital visit. Diagnosis from Today's Visit Vomiting What to Do Next Instructions from Your Care Team No qualifying data available. Post Acute Orders No qualifying data available. You Need to Schedule the Following Appointments Follow Up with ORION AGUILAR MD When:Within 2-4 days Where:[address] [place] [phone] Allergies No Known Medication Allergies Medications Please ask your primary doctor or pharmacist before taking any other medication not listed, including over the counter drugs, herbal medications, vitamins and or supplements as they may interact with your home medications. What How Much When Instructions Last Dose New ondansetron (ondansetron 4 mg oral tablet, disintegrating) 1 tab(s) by mouth Every 6 hours as needed for Nausea/Vomiting Duration: 4 Days Printed Prescription Please take this list to your next doctor s visit. Bring all medications you take, including over the counter medications, herbals and other supplements with you to your doctor s visit. Patients and families are reminded to discard old lists and to update any records with all medication providers or retail pharmacies. Education Materials Diet for Vomiting or Diarrhea (Adult) Your symptoms may return or get worse after eating certain foods listed below. If this happens, stop eating these foods until your symptoms ease and you feel better. Once the vomiting stops, follow the steps below. During the first 12 to 24 hours During the first 12 to 24 hours, follow this diet: Drinks. Plain water, sport drinks like electrolyte solutions, soft drinks without caffeine, mineral water (plain or flavored), clear fruit juices, and decaffeinated tea and coffee. Soups. Clear broth. Desserts. Plain gelatin, popsicles, and fruit juice bars. As you feel better, you may add 6 to 8 ounces of yogurt per day. If you have diarrhea, don't have foods or drinks that contain sugar, high-fructose corn syrup, or sugar alcohols. During the next 24 hours During the next 24 hours you may add the following to the above: Hot cereal, plain toast, bread, rolls, and crackers Plain noodles, rice, mashed potatoes, and chicken noodle or rice soup Unsweetened canned fruit (but not pineapple) and bananas Don't eat more than 15 grams of fat a day. Do this by staying away from margarine, butter, oils, mayonnaise, sauces, gravies, fried foods, peanut butter, meat, poultry, and fish. Don't eat much fiber. Stay away from raw or cooked vegetables, fresh fruits (except bananas), and bran cereals. Limit how much caffeine and chocolate you have. Do not use any spices or seasonings except salt. During the next 24 hours Slowly go back to your normal diet, as you feel better and your symptoms ease. 1512-4186 [employer]. [address] [place] [address]. All rights reserved. This information is not intended as a substitute for professional medical care. Always follow your healthcare professional's instructions. Additional Information VACCINATE! IT SAVES LIVES! Members of the community who have not yet received the COVID-19 vaccine and would like to receive it can visit one of [facility] vaccine clinics. There are many vaccine clinic locations within the [facility]. For locations and available times, please visit [email or web address] It is important to note that some COVID mobile vaccine clinics are held outdoors and may be canceled in rainy or stormy conditions. To learn more about pediatric vaccinations (ages 5-11), we invite you to visit the [facility] webpage. [email or web address] To learn more about the COVID-19 vaccine, we invite you to visit the CDC website for a list of frequently asked questions. https://www.cdc.gov/coronavirus/ 2019-ncov/vaccines/faq.html [facility] Patient Portal Access Instructions: Stay connected with your healthcare team and access your personal medical information anytime with the [employer] Patient Portal. If you would like a full copy of your medical records please contact the [facility] Medical Records Department Monday through Monday between 8a.m. and 4:30p.m. Please follow the directions below to access the portal: 1.Access the email account you provided upon registration to the [facility].2.Look for an invitation email from [facility].3.Open the email and access the invitation link: Accept Invitation to [employer]4.Fill in the required house to create your account. Sign into [email or web address] with your username and password that you created in the above steps to stay up to date. You can then view a summary of results, a summary of your visits, and the ability to download your summaries to your computer or send the information securely to a physician. Remember that your healthcare information is confidential, so carefully consider who you will allow to register on the [employer] Patient Portal for access to your information. You can also access the [employer] Patient Portal on the [employer]. Simply click on Health Records under Health Data and then click on the [employer] logo. HOW TO SAFELY DISPOSE OF PRESCRIPTION MEDICATIONS Please use one of the following methods to safely dispose of your unused medications. 1.Use a drug disposal kit: the drug disposal pouch allows you to safely discard your old and unused drugs. Ask your nurse to give you one when you are discharged.2.Visit a local take-back location: Many local pharmacies and police departments have programs that collect old and unwanted prescription drugs. Call your local pharmacy or go to http://bit.ly/8K4Iy0b to find one close to you.3.Make use of household items: Use cat litter or old coffee grounds to dispose medications if other options are not available. Mix your drugs with these household products, seal them in an airtight container and throw it into the garbage. Call [facility]: [phone] to be sure your drugs can be disposed of in this way. Some medicines may require a different approach.4.Never flush your medications down the toilet. IF YOU HAVE BEEN PRESCRIBED AN OPIOIDS FOR PAIN If you have been prescribed an opioid (such as hydrocodone, oxycodone or morphine), it is critical to understand the possible side effects and risks of opioid pain medications. Even when taken as directed, opioids can have several side effects including: Tolerance, meaning you might need to take more of a medication for the same pain relief. Nausea, vomiting and/or constipation. Sleepiness, dizziness, dry mouth, confusion, depression or itching. Physical dependence, meaning you have withdrawal symptoms when a medication is stopped ? this can develop within a few days. KNOW YOUR RESPONSIBILITIES It is important to know exactly how much and how often to take the opioid pain medications you are prescribed. Never take opioids in higher amounts or more often than prescribed. Do not combine opioids with alcohol or other drugs that cause drowsiness, such as benzodiazepines, also known as benzos, including diazepam and alprazolam, muscle relaxants or sleep aids. Never sell or share prescription opioids. This is illegal. Store opioids in a secure place and out of reach of others (including children, family, friends and visitors). The last page(s) of this document has been signed and retained as a CHART COPY Signatures Patient Education Materials Diet for Vomiting or Diarrhea (Adult) Medication Leaflets My discharge plan and instructions have been reviewed and explained to me and I,YOMI ALBERTO S understand my current condition and have read and understand these discharge instructions. I have received a written copy of the plan/instructions. If I have questions, I am aware that I should contact my doctor. Patient/Cigarette Tester Signature: Date/Time: Relationship to Patient: Witness Name/Signature: Date/Time: [facility] 07-07-2024 Note Exam Date Time Procedure Performing Provider Status 07/07/24 8:28 AM EKG [ED [facility]] - CV MARTINA SUBHASH Mendez O; Auth (Verified) ECG Final Report Sinus rhythm Incomplete right bundle branch block Baseline wander in lead(s) V5 Compared to ECG at 03/25/2024 08:03:46 Electronic Signature: SUBHASH MACK DO 07/07/2024 09:08:26 [facility]12-20-2024 Instructions* Patient Instructions* Noa Kiser MD - 06/28/2024 1:57 PM EST Labs to be done on fasting at 8 am Hold supplements for about 3 to 5 days before labs are drawn Thyroid ultrasound orders placed documented in this encounterBarney [facility]12-[facility]24 NoteHNO ID: [id number] Author: NOA KISER MD Service: ? Author Type: Physician Type: Progress Notes Filed: 06/29/2024 19:51 Note Text: [facility] Initial Clinic Visit Note Consulted by: Peggy Staley MD (Neurology) Chief Complaint: Empty sella syndrome HPI: This is a 33 year old male who presents with empty sells syndrome. He is accompanied by his mother today History in brief, he passed out at work in Mar 2024, on standing. Denied any symptoms before. The next thing he knew was that he was on the floor He was on metoprolol for few years, stopped it few days ago after tapering, due to low BP He is following neurology No injuries to head, no vision changes, no nipple discharge, breast tenderness, N/V/D, changes known in weight or appetite per patient, but mother points out that he might have lost about 30 lbs in the last 2 years due to stress, going through divorce No muscle cramps, temperature intolerance Only on lexapro now,. No use of supplements PAST MEDICAL HISTORY: Depression PAST SURGICAL HISTORY: No past surgical history on file. FAMILY HISTORY: No family history on file. SOCIAL HISTORY: Social History Tobacco Use Smoking status: Former MEDICATIONS: Current Outpatient Medications Medication Sig escitalopram oxalate (LEXAPRO) 20 mg tablet Take 1 tablet by mouth every afternoon. metoprolol tartrate, short acting, (LOPRESSOR) 25 mg tablet TAKE 1/2 (ONE HALF) TABLET BY MOUTH TWO TIMES DAILY No current facility-administered medications for this visit. ALLERGIES: ALLERGIES No Known Allergies REVIEW OF SYSTEMS: GENERAL: No weight loss, malaise or fevers HEENT: Negative for frequent or significant headaches, No changes in hearing or vision, no nose bleeds or other nasal problems NECK: Negative for lumps, goiter, pain and significant neck swelling RESPIRATORY: Negative for cough, hemoptysis, wheezing, COPD, dyspnea or shortness of breath CARDIOVASCULAR: Negative for chest pain, leg swelling, hypertension, CHF or palpitations GI: No nausea, vomiting, or diarrhea MUSCULOSKELETAL: Negative for joint pain or swelling, back pain or muscle pain SKIN: Negative for lesions, rash, and itching ENDOCRINE: Negative for cold or heat intolerance, polyuria, polydipsia and goiter NEURO: No history of headaches, syncope, paralysis, seizures or tremors All other reviewed and negative other than HPI. PHYSICAL EXAM: BP 132/62 (BP Site: Right Arm, BP Position: Sitting, BP Cuff Size: Regular Adult) Pulse 76 Temp 36.9 ?C (98.5 ?F) (Temporal Artery) Ht 170.2 cm (5' 7) Wt 95.9 kg (211 lb 6.4 oz) SpO2 94% BMI 33.11 kg/m? Body mass index is 33.11 kg/m?. General Appearance: Well appearing, alert, in no acute distress, well-hydrated, well nourished, obese body habitus Skin: Skin color, texture, turgor normal, no suspicious rashes or lesions. Eyes: Anicteric sclera. Extraocular movements are intact. . Neck: Supple, no adenopathy; thyroid appears nodular/irregular contour, with no discrete nodules, normal size Lungs: unlabored breathing on room air Heart: RRR, S1 and S2 normal Abdomen: soft, non tender, no striae Extremities: No deformities, edema, skin discoloration, clubbing or cyanosis. No tremors on outstretched arms Musculoskeletal: No joint swelling, deformity, or tenderness. Peripheral Pulses: Normal. Neurologic: Gait normal. Reflexes normal and symmetric. LABS: No pertinent labs available Imagin06/07/2024: RESULT: Acute Change: There is no evidence of restricted diffusion to suggest an acute infarct. Hemorrhage: No evidence of prior parenchymal hemorrhage on the susceptibility weighted images. Mass Lesion/ Mass Effect: No evidence of an intracranial mass or extra-axial fluid collection. No abnormal parenchymal or leptomeningeal enhancement is noted following contrast administration. No significant mass effect. Chronic Change: The white matter is within normal limits of signal intensity for age. Parenchyma: No significant volume loss for age. The brain parenchyma is otherwise within normal limits of signal intensity and morphology. Partial empty sella. Minimal prominence of the subarachnoid space adjacent the optic nerves bilaterally. These findings can be seen with intracranial hypertension. Ventricles: Normal caliber and morphology. Skull Base: Hypothalamic and pituitary region are grossly normal. Craniocervical junction is normal. No significant marrow replacement process. Vasculature: Major intracranial arterial structures, and dural venous sinuses show typical flow void, suggesting patency by spin echo criteria. Other: The visualized paranasal sinuses and mastoid air cells are clear. The orbits and extracranial soft tissues are unremarkable. IMPRESSION: Findings as detailed above which can be seen with intracranial hypertension. No acute findings or intracranial mas (more content not included)...[facility]12-20-2024 History of Present illness Narrative* Noa Kiser MD - 06/28/2024 1:32 PM EST [facility] Initial Clinic Visit Note Consulted by: Peggy Staley MD (Neurology) Chief Complaint: Empty sella syndrome HPI: This is a 33 year old male who presents with empty sells syndrome. He is accompanied by his mother today History in brief, he passed out at work in Mar 2024, on standing. Denied any symptoms before. The next thing he knew was that he was on the floor He was on metoprolol for few years, stopped it few days ago after tapering, due to low BP He is following neurology No injuries to head, no vision changes, no nipple discharge, breast tenderness, N/V/D, changes known in weight or appetite per patient, but mother points out that he might have lost about 30 lbs in the last 2 years due to stress, going through divorce No muscle cramps, temperature intolerance Only on lexapro now,. No use of supplements PAST MEDICAL HISTORY: Depression PAST SURGICAL HISTORY: No past surgical history on file. FAMILY HISTORY: No family history on file. SOCIAL HISTORY: Social History Tobacco Use Smoking status: Former MEDICATIONS: Current Outpatient Medications Medication Sig escitalopram oxalate (LEXAPRO) 20 mg tablet Take 1 tablet by mouth every afternoon. metoprolol tartrate, short acting, (LOPRESSOR) 25 mg tablet TAKE 1/2 (ONE HALF) TABLET BY MOUTH TWOTIMES DAILY No current facility-administered medications for this visit. ALLERGIES: ALLERGIES No Known Allergies REVIEW OF SYSTEMS: GENERAL: No weight loss, malaise or fevers HEENT: Negative for frequent or significant headaches, No changes in hearing or vision, no nose bleeds or other nasal problems NECK: Negative for lumps, goiter, pain and significant neck swelling RESPIRATORY: Negative for cough, hemoptysis, wheezing, COPD, dyspnea or shortness of breath CARDIOVASCULAR: Negative for chest pain, leg swelling, hypertension, CHF or palpitations GI: No nausea, vomiting, or diarrhea MUSCULOSKELETAL: Negative for joint pain or swelling, back pain or muscle pain SKIN: Negative for lesions, rash, and itching ENDOCRINE: Negative for cold or heat intolerance, polyuria, polydipsia and goiter NEURO: No history of headaches, syncope, paralysis, seizures or tremors All other reviewed and negative other than HPI. PHYSICAL EXAM: BP 132/62 (BP Site: Right Arm, BP Position: Sitting, BP Cuff Size: Regular Adult) Pulse 76 Temp36.9 C (98.5 F) (Temporal Artery) Ht 170.2 cm (5' 7) Wt 95.9 kg (211 lb 6.4 oz) SpO2 94% BMI 33.11 kg/m Body mass index is 33.11 kg/m . General Appearance: Well appearing, alert, in no acute distress, well-hydrated, well nourished, obese body habitus Skin: Skin color, texture, turgor normal, no suspicious rashes or lesions. Eyes: Anicteric sclera. Extraocular movements are intact. . Neck: Supple, no adenopathy; thyroid appears nodular/irregular contour, with no discrete nodules, normal size Lungs: unlabored breathing on room air Heart: RRR, S1 and S2 normal Abdomen: soft, non tender, no striae Extremities: No deformities, edema, skin discoloration, clubbing or cyanosis. No tremors on outstretched arms Musculoskeletal: No joint swelling, deformity, or tenderness. Peripheral Pulses: Normal. Neurologic: Gait normal. Reflexes normal and symmetric. LABS: No pertinent labs available Imagin06/07/2024: RESULT: Acute Change: There is no evidence of restricted diffusion to suggest an acute infarct. Hemorrhage: No evidence of prior parenchymal hemorrhage on the susceptibility weighted images. Mass Lesion/ Mass Effect: No evidence of an intracranial mass or extra-axial fluid collection. No abnormal parenchymal or leptomeningeal enhancement is noted following contrast administration. No significant mass effect. Chronic Change: The white matter is within normal limits of signal intensity for age. Parenchyma: No significant volume loss for age. The brain parenchyma is otherwise within normal limits of signal intensity and morphology. Partial empty sella. Minimal prominence of the subarachnoid space adjacent the optic nerves bilaterally. These findings can be seen with intracranial hypertension. Ventricles: Normal caliber and morphology. Skull Base: Hypothalamic and pituitary region are grossly normal. Craniocervical junction is normal. No significant marrow replacement process. Vasculature: Major intracranial arterial structures, and dural venous sinuses show typical flow void, suggesting patency by spin echo criteria. Other: The visualized paranasal sinuses and mastoid air cells are clear. The orbits and extracranial soft tissues are unremarkable. IMPRESSION: Findings as detailed above which can be seen with intracranial hypertension. No acute findings or intracranial mass. ASSESSMENT : 33 year old male presenting today for emplty sells syndrome PLAN: 1. Empty sella (HCC) (E23.6) Reviewed etiologies of empty sella, pathophysiology of each condition in brief I reviewed that the MRI brain does not show any adenoma, and hence this appears to be a primary empty sella, secondary to intracranial HTN He does not have any significant symptoms, other than weight loss Discussed doing pituitary panel to check if empty sella is related to pituitary pathology. This most likely will be normal. Will not consider DST as cortisol excess is less likely to be associated with weight loss Plan: Pituitary panel- fasting 8 am labs suggested. Advised holding supplements, espo with biotin for 3 to 5 days before lab draw If hormonal abnormalities are noted, will consider MRI pit Multiple questions answered today taking enough time All questions welcomed and answered to satisfaction Patient understands and agrees with the plan discussed. FOLLOW UP: first available Advised patient to call or send My Chart message for results, within 1-2 weeks of having the tests obtained. The patient is to continue to follow up with his/her PCP and with other consultants regarding his/her other medical problems. I will communicate my opinion on today's office note with the consulting physician Peggy Staley MD Medical Decision Making: Problems: Moderate: New problem with uncertain prognosis Data: Unique test(s) ordered: 3+ Risk: Low: Low risk from testing/treatment Medical Decision Making Level: 4 - Moderate Noa Kiser MD Endocrinology Associate Staff [facility] Endocrinology and Metabolism [employer] [phone] documented in this encounterBarney Children'[facility]12-03-2024 Miscellaneous Notes* Telephone Encounter - Master Melendez - 06/11/2024 9:38 AM EST Called to schedule consult to headache clinic. LVM with phone number to call and schedule documented in this encounterBarney Children'S [facility] Center12-03-2024 Telephone encounter Note * Telephone Encounter - Master Melendez - 06/11/2024 9:38 AM EST Called to schedule consult to headache clinic. LVM with phone number to call and schedule [facility]12-03-[facility] Telephone encounter Note* Telephone Encounter - Zenobia Aguilar RN - 06/11/2024 9:31 AM EST Called patient Identified by name and date of Reviewed results and recommendations Patient was at work and could not take number for headache neurology Will send a message to appts to see if they can help get this appt setup Patient verbalized understanding and agrees with plan No further concerns [facility]12-03-2024 Miscellaneous Notes* Telephone Encounter - Zenobia Aguilar RN - 06/11/2024 9:31 AM EST Called patient Identified by name and date of Reviewed results and recommendations Patient was at work and could not take number for headache neurology Will send a message to appts to see if they can help get this appt setup Patient verbalized understanding and agrees with plan No further concerns * Telephone Encounter - Zenobia Aguilar RN - 06/10/2024 10:06 AM EST Called patient, unable to leave a message at this time, will try back at a later time * Telephone Encounter - Zenobia Aguilar RN - 06/10/2024 9:[address] Staley: please contact this patient to let him know that his MRI brain did not show any mass or acute pathology in the brain. It did confirm the presence of empty sella (pituitary) which we had seen previously on his CTH and he has appointment with endocrinology scheduled. His MRI does have subtle features of elevated intracranial pressure (a condition called idiopathic intracranial hypertension or IIH). This can cause headache and is usually confirmed via a spinal tapbut I would suggest he sees one of the headache neurologist to decide if this is needed since the headache we discussed during his office visit was not suggestive of this disorder. I have placed a ref erral for him. documented in this encounterBarney Children'[facility] Center12-02-2024 Telephone encounter Note * Telephone Encounter - Zenobia Aguilar RN - 06/10/2024 10:06 AM EST Called patient, unable to leave a message at this time, will try back at a later time [facility]12-02-20[facility] Telephone encounter Note* Telephone Encounter - Zenobia Aguilar RN - 06/10/2024 9:[address] Staley: please contact this patient to let him know that his MRI brain did not show any mass or acute pathology in the brain. It did confirm the presence of empty sella (pituitary) which we had seen previously on his CTH and he has appointment with endocrinology scheduled. His MRI does have subtle features of elevated intracranial pressure (a condition called idiopathic intracranial hypertension or IIH). This can cause headache and is usually confirmed via a spinal tapbut I would suggest he sees one of the headache neurologist to decide if this is needed since the headache we discussed during his office visit was not suggestive of this disorder. I have placed a ref erral for him. [facility]11-29-[facility] History of Present illness Narrative* Inocencio Zuleta RT(R) - 06/07/2024 1:00 PM EST Radiology Service Progress Note DATE OF SERVICE: June 07, 2024 TIME: 1:12 PM PATIENT IDENTITY VERIFICATION COMPLETED USING TWO (2) STANDARD IDENTIFIERS: Name and Date of confirmed by patient verbally. FALL SCREENING: Has the patient had 2 falls in the last year or 1 fall with injury or currently using an Ambulatory Assistive Device (Walker, Cane, Wheelchair, Crutches, etc.)? No PATIENT GENDER DATA: Male PATIENT RELEVANT IMPLANT DATA REVIEWED: Yes PATIENT PRESENTS WITH AN IMPLANTABLE OR ATTACHED SANITIZER: No ALLERGIES: Reviewed and unchanged CONTRAST ALLERGY: NO. EXAM: MRI - CONTRAST TYPE: GROUP II PERIPHERAL IV DATA: Ambulatory: A peripheral IV was started in the Right antecubital site with a Angio cath: 22 gauge. RADIOLOGY DEPARTMENT: MR; Exam(s) Completed: Head: Routine Brain SIGNATURE: PAULINO Quiroga) PATIENT NAME: Yomi Alberto DATE: June 07, 2024 TIME: 1:12 PM documented in this encounterBarney Children'S Medical Center11-29-2024 NoteHNO ID: [id number] Author: INOCENCIO ZULETA RT(January) Service: ? Author Type: Technologist Type: Progress Notes Filed: 06/07/2024 13:12 Note Text: Radiology Service Progress Note DATE OF SERVICE: June 07, 2024 TIME: 1:12 PM PATIENT IDENTITY VERIFICATION COMPLETED USING TWO (2) STANDARD IDENTIFIERS: Name and Date of confirmed by patient verbally. FALL SCREENING: Has the patient had 2 falls in the last year or 1 fall with injury or currently using an Ambulatory Assistive Device (Walker, Cane, Wheelchair, Crutches, etc.)? No PATIENT GENDER DATA: Male PATIENT RELEVANT IMPLANT DATA REVIEWED: Yes PATIENT PRESENTS WITH AN IMPLANTABLE OR ATTACHED SANITIZER: No ALLERGIES: Reviewed and unchanged CONTRAST ALLERGY: NO. EXAM: MRI - CONTRAST TYPE: GROUP II PERIPHERAL IV DATA: Ambulatory: A peripheral IV was started in the Right antecubital site with a Angio cath: 22 gauge. RADIOLOGY DEPARTMENT: MR; Exam(s) Completed: Head: Routine Brain SIGNATURE: RT Junaid(R) PATIENT NAME: Yomi Alberto DATE: June 07, 2024 TIME: 1:12 [facility]11-01-2024 Instructions* Patient Instructions* Peggy Staley MD - 05/10/2024 11:18 AM EDT I would recommend further evaluation with MRI of the brain and EEG testing. I would also suggest an evaluation with cardiology and endocrinology. Please continue to follow up with your primary care physician and follow up with me as needed. documented in this encounterBarney Children'S Medical Center11-01-2024 History of Present illness Narrative* Peggy Staley MD - 05/10/2024 10:30 AM EDT Images from the original note were not included. 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 The patient was accompanied by his mother. Previous records (physician notes, laboratory reports, and radiology reports) and imaging studies were reviewed and summarized. My recommendations will be communicated back to the patient's physician(s) via electronic medical record. Follow-up is expected to be with the patient's primary care physician. Seen at [facility] ED for syncope with head trauma on 03/25/2024. Patient reports he was working and had syncope without warning sings. He is currently under a lot of stress as in the process of divorce.He also had a recent COVID-19 infection prior to syncope. He was reportedly unconscious for a few minutes. No motor seizure activity was witnessed. He did injure his tooth and lip due to the fall. Hedenies bowel or bladder incontinence. He was slightly dizzy after the event and has returned to work now after a week. CTH was obtained in the ED which showed a partially empty sella and referred to us for further evaluation. He has not experienced any further episodes but has had 1-2 presyncopal events since that time. His mum reports another episode of syncope in his teenage years. He denies any focal neurological events including weakness, numbness, tingling, dysarthria, vision changes, or bowel/bladder symptoms. He experiences headaches approximately once per week lasting an hour or so and improves with rest. Improves with laying down or OTC analgesia. He was recently prescribed migraine abortive medication for the headache. He denies tinnitus. He was prescribed metoprolol 12.5 mg BID (? unclear cause) but he usually takes it 25 mg in the mornings (patient reports not being worried about the dose since it was a small pill). He smokes tobacco. He denies significant alcohol use. 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 Current Symptoms: Fatigue, couple of years PAST HISTORY: has no past medical history on file. has no past surgical history on file. has a current medication list which includes the following prescription(s): escitalopram oxalate, metoprolol tartrate (short acting), and iv contrast. Social History Tobacco Use Smoking status: Former Smokeless tobacco: Not on file family history is not on file. PHYSICAL EXAM: BP 102/62 (BP Site: Left Arm, BP Position: Sitting, BP Cuff Size: Regular Adult) Pulse (!) 51 Resp 16 Wt 95.3 kg (210 lb 1.6 oz) SpO2 99% Hair, skin, nails, and joints were normal. Neck was supple without Lhermitte's phenomenon. Breathing comfortably on room air. There was no peripheral edema. Dental fracture noted. Dysmorphic appearance. The patient was alert and with normal language, attention and concentration, recent and remote memory, praxis, and intellectual function. Affect was normal. The patient did not appear depressed. Visual acuity to near card was as follows: OD= 20/20 (without correction) OS= 20/20 (without correction). Visual house were full to confrontation. Pupils were 3 mm and briskly reactive OU without a relative afferent pupillary defect. Funduscopic examination was normal without disc edema, erythema, or atrophy. Ocular ductions were full without nystagmus or ataxia. Facial sensation was normal. Muscles of mastication and facial expression moved normally. Hearing was intact to finger rub bilaterally. Palatal movements were normal. Sternocleidomastoid and trapezius power were normal. Tongue movements were normal. There was no dysarthria. Motor Examination: There was no pronator drift. Right Upper Extremity: Left Upper Extremity: Deltoid 5/5 Deltoid 5/5 Biceps 5/5 Biceps 5/5 Triceps 5/5 Triceps 5/5 Wrist extensors 5/5 Wrist extensors 5/5 Wrist flexors 5/5 Wrist flexors 5/5 Dorsal interossei 5/5 Dorsal interossei 5/5 Finger extension 5/5 Finger extension 5/5 Tone (Adolfo scale) 0 Tone (Adolfo scale) 0 Right Lower Extremity: Left Lower Extremity: Hip flexors 5/5 Hip flexors 5/5 Hip extensors 5/5 Hip extensors 5/5 Knee flexors 5/5 Knee flexors 5/5 Knee extensors 5/5 Knee extensors 5/5 Dorsiflexors 5/5 Dorsiflexors 5/5 Plantarflexors 5/5 Plantarflexors 5/5 Toe extensors 5/5 Toe extensors 5/5 Toe flexors 5/5 Toe flexors 5/5 Tone (Adolfo scale) 0 Tone (Adolfo scale) 0 Reflexes: brachioradialis ++ brachioradialis ++ biceps ++ biceps ++ triceps ++ triceps ++ patellar ++ patellar ++ Achilles ++ Achilles ++ Uribe's sign absent Uribe's sign absent clonus absent clonus absent plantar response down plantar response down Coordination testing in the arms and legs was performed including [id number], rapid-alternating, and fine movements. Rapid movements were smooth with good brie and there was no dysmetria or ataxia. No signs of cerebellar dysfunction. Sensory examination: Light touch: Normal all four extremities. Vibration: Normal in bilateral upper and lower extremities. Proprioception: Normal bilateral lower extremities. Romberg's test was normal. Gait was normal, including heel, toe, and tandem walking. REVIEW OF RECORDS: CTH 03/25/2024 (reviewed on CD -- will upload to PACS): No acute pathology. Partially empty sella. REVIEW OF IMAGING STUDIES: As above. ASSESSMENT: 33 year old left handed male with relevant PMHx HTN, ADHD, and depression presenting for evaluationof abnormal CTH (partially empty sella). He was seen in the ED for an episode of syncope for which CTH was obtained incidentally noting above abnormalities. No neurological history or exam findings to suggest neurogenic etiology. 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 We suspect syncope was most likely due to cardiac etiology (hypotension/bradycardia in the setting of inappropriate dosing of inappropriate dosing of beta-guy). Further EKG at ED showed conduction block whichmay be contributing. Neuroimaging findings are likely also incidental but given the history of fatigue and syncope will obtain MRI brain and refer to endocrinology to consider interrogation of pituitary axis function. EEG to screen for inter- ictal abnormalities although suspicion for this to be etiology of syncope is low. PLAN: - Sent link for patient to help set up [employer] account for future communication. - MRI brain w/wo. - EEG brain. - Endocrinology consult. - Cardiology consult. - Neuro-genetics consult was offered but would like to hold off for now. - Follow up with us as needed. Office Visit on 05/10/24 MRI BRAIN WO/W IVCON CONSULT TO ENDOCRINOLOGY CONSULT TO CARDIOLOGY EPIL EEG ROUTINE The chart was reviewed for possible participation in the following studies: None I spent a total of 60 minutes on the date of the service which included preparing to see the patient, [id number] patient care, completing clinical documentation, obtaining and/or reviewing separately obtained history, performing a medically appropriate examination, counseling and educating the pat ient/family/caregiver, and ordering medications, tests, or procedures. Peggy Staley MD MSc Neuroimmunology Staff Physician [facility] documented in [facility] NoteHNO ID: [id number] Author: PEGGY STALEY MD Service: ? Author Type: Physician Type: Progress Notes Filed: 05/10/2024 12:22 Note Text: 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 The patient was accompanied by his mother. Previous records (physician notes, laboratory reports, and radiology reports) and imaging studies were reviewed and summarized. My recommendations will be communicated back to the patient's physician(s) via electronic medical record. Follow-up is expected to be with the patient's primary care physician. Seen at [facility] ED for syncope with head trauma on 03/25/2024. Patient reports he was working and had syncope without warning sings. He is currently under a lot of stress as in the process of divorce. He also had a recent COVID-19 infection prior to syncope. He was reportedly unconscious for a few minutes. No motor seizure activity was witnessed. He did injure his tooth and lip due to the fall. He denies bowel or bladder incontinence. He was slightly dizzy after the event and has returned to work now after a week. CTH was obtained in the ED which showed a partially empty sella and referred to us for further evaluation. He has not experienced any further episodes but has had 1-2 presyncopal events since that time. His mum reports another episode of syncope in his teenage years. He denies any focal neurological events including weakness, numbness, tingling, dysarthria, vision changes, or bowel/bladder symptoms. He experiences headaches approximately once per week lasting an hour or so and improves with rest. Improves with laying down or OTC analgesia. He was recently prescribed migraine abortive medication for the headache. He denies tinnitus. He was prescribed metoprolol 12.5 mg BID (? unclear cause) but he usually takes it 25 mg in the mornings (patient reports not being worried about the dose since it was a small pill). He smokes tobacco. He denies significant alcohol use. 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 Current Symptoms: Fatigue, couple of years PAST HISTORY: has no past medical history on file. has no past surgical history on file. has a current medication list which includes the following prescription(s): escitalopram oxalate, metoprolol tartrate (short acting), and iv contrast. Social History Tobacco Use Smoking status: Former Smokeless tobacco: Not on file family history is not on file. PHYSICAL EXAM: BP 102/62 (BP Site: Left Arm, BP Position: Sitting, BP Cuff Size: Regular Adult) Pulse (!) 51 Resp 16 Wt 95.3 kg (210 lb 1.6 oz) SpO2 99% Hair, skin, nails, and joints were normal. Neck was supple without Lhermitte's phenomenon. Breathing comfortably on room air. There was no peripheral edema. Dental fracture noted. Dysmorphic appearance. The patient was alert and with normal language, attention and concentration, recent and remote memory, praxis, and intellectual function. Affect was normal. The patient did not appear depressed. Visual acuity to near card was as follows: OD= 20/20 (without correction) OS= 20/20 (without correction). Visual house were full to confrontation. Pupils were 3 mm and briskly reactive OU without a relative afferent pupillary defect. Funduscopic examination was normal without disc edema, erythema, or atrophy. Ocular ductions were full without nystagmus or ataxia. Facial sensation was normal. Muscles of mastication and facial expression moved normally. Hearing was intact to finger rub bilaterally. Palatal movements were normal. Sternocleidomastoid and trapezius power were normal. Tongue movements were normal. There was no dysarthria. Motor Examination: There was no pronator drift. Right Upper Extremity: Left Upper Extremity: Deltoid 5/5 Deltoid 5/5 Biceps 5/5 Biceps 5/5 Triceps 5/5 Triceps 5/5 Wrist extensors 5/5 Wrist extensors 5/5 Wrist flexors 5/5 Wrist flexors 5/5 Dorsal interossei 5/5 Dorsal interossei 5/5 Finger extension 5/5 Finger extension 5/5 Tone (Adolfo scale) 0 Tone (Adolfo scale) 0 Right Lower Extremity: Left Lower Extremity: Hip flexors 5/5 Hip flexors 5/5 Hip extensors 5/5 Hip exte (more content not included)...[facility]09-16-2024 Hospital Discharge instructions Patient Education 03/25/2024 09:19:43 Diagnosing Syncope Diagnosing Syncope Syncope is loss of consciousness (fainting). Your healthcare provider will ask you about your fainting episode and health history. You will also be examined. You will need multiple tests to evaluate your symptoms. Health history and exam You may be asked about: Where and when you fainted, and how long you were unconscious How you felt just before and right after you fainted How you feel when you do activities like moderate to heavy exercise Any family history of heart disease or fainting Any cardiac or neurological problems you may have Any medications you may be taking If you drink alcohol or use illicit or recreational drugs Your healthcare provider will examine you and may: Check your blood pressure several times while lying down, sitting, and standing Listen for any heart murmurs or abnormal heartbeats Listen and feel the pulses in your neck Examine your eyes, reflexes, and limb movement Tests You may need 1 of more of the following tests: Electrocardiogram (ECG). This can help your provider find a slow or a fast heartbeat. Holter monitoring. You wear a portable ECG monitor for 24 hours. It records your heartbeat. Event monitoring. You wear a portable ECG monitor for several weeks. It records your heartbeat. Echocardiogram. This test takes pictures of your heart. It can show heart valve or heart function problems. Or it can reveal damage from a heart attack. Electrophysiology studies (EPS). These help your provider find weak or damaged electrical pathways that make your heart beat too fast or slow. This helps your provider find the cause of a heart rate or rhythm problem and decide how to treat it. Tilt table testing. Tilt table testing helps show if changes in your body position affect your heart rate and blood pressure. Carotid artery ultrasound. This shows the blood flow through the arteries in the neck that supply oxygen and circulation to your brain. This test can locate any blockages in these arteries. MRI or CT scan of the neck and brain. These tests can determine if there is something else going onin the brain that is causing a loss of consciousness by scanning the blood flow and brain structures. They are done in a radiology department. Blood and other lab tests. These tests are used to find any abnormalities in your body that may cause syncope. For example, low blood sugar can cause a loss of consciousness which may be mistaken forsyncope. Other wastes and toxins can affect the brains ability to function and affect consciousness. Electroencephalogram (EEG). If your provider thinks you may be having seizures instead of syncope, this test may be done. Electrodes are applied to the scalp to measure the activity of the brain. A neurologist who specializes in reading EEGs would interpret the results. You may be evaluated by a insurance writer, a neurologist, or an ear, nose, and throat specialist to fully evaluate the cause of your syncope. Treatment will be based on whatever the cause is. Be sure toask your provider how you will receive the results of your tests and what additional steps must be taken. One of the concerns with syncope is being injured from falling with a loss of consciousness. Finding a cause for syncope can help keep you safe from injury. Do not drive a car, operate heavy machinery, or engage in activities that may result in injury if you were to faint during the activity. Ask your provider when it will be safe for you to resume these activities. 7694-0060 [employer]. [address] [place] [address], [place] [address]. All rights reserved. This information is not intended as a substitute for professional medical care. Always follow yourhealthcare professional's instructions. Follow Up Care 03/25/2024 07:53:46 With:ROSEANNA MCGHEE MD Address: [address] [place] [phone]- [phone] When:2-4 days [facility] 09-16-2024 Note Discharge Instructions Thank you for allowing [facility] to assist you with your healthcare needs. The following is importantdischarge information regarding your hospital visit. Diagnosis from Today's Visit Fractured dental crown Syncope What to Do Next Instructions from Your Care Team No qualifying data available. Post Acute Orders No qualifying data available. You Need to Schedule the Following Appointments Follow Up with ROSEANNA MCGHEE MD When:Within 2-4 days Where:[address] [place] [address]- [phone] Allergies No Known Medication Allergies Medications Please ask your primary doctor or pharmacist before taking any other medication not listed, including over the counter drugs, herbal medications, vitamins and or supplements as they may interact withyour home medications. Please take this list to your next doctor s visit. Bring all medications you take, including over the counter medications, herbals and other supplements with you to your doctor s visit. Patients and families are reminded to discard old lists and to update any records with all medication providers or retail pharmacies. Education Materials Diagnosing Syncope Syncope is loss of consciousness (fainting). Your healthcare provider will ask you about your fainting episode and health history. You will also be examined. You will need multiple tests to evaluate your symptoms. Health history and exam You may be asked about: Where and when you fainted, and how long you were unconscious How you felt just before and right after you fainted How you feel when you do activities like moderate to heavy exercise Any family history of heart disease or fainting Any cardiac or neurological problems you may have Any medications you may be taking If you drink alcohol or use illicit or recreational drugs Your healthcare provider will examine you and may: Check your blood pressure several times while lying down, sitting, and standing Listen for any heart murmurs or abnormal heartbeats Listen and feel the pulses in your neck Examine your eyes, reflexes, and limb movement Tests You may need 1 of more of the following tests: Electrocardiogram (ECG). This can help your provider find a slow or a fast heartbeat. Holter monitoring. You wear a portable ECG monitor for 24 hours. It records your heartbeat. Event monitoring. You wear a portable ECG monitor for several weeks. It records your heartbeat. Echocardiogram. This test takes pictures of your heart. It can show heart valve or heart function problems. Or it can reveal damage from a heart attack. Electrophysiology studies (EPS). These help your provider find weak or damaged electrical pathways that make your heart beat too fast or slow. This helps your provider find the cause of a heart rate or rhythm problem and decide how to treat it. Tilt table testing. Tilt table testing helps show if changes in your body position affect your heart rate and blood pressure. Carotid artery ultrasound. This shows the blood flow through the arteries in the neck that supply oxygen and circulation to your brain. This test can locate any blockages in these arteries. MRI or CT scan of the neck and brain. These tests can determine if there is something else going onin the brain that is causing a loss of consciousness by scanning the blood flow and brain structures. They are done in a radiology department. Blood and other lab tests. These tests are used to find any abnormalities in your body that may cause syncope. For example, low blood sugar can cause a loss of consciousness which may be mistaken forsyncope. Other wastes and toxins can affect the brains ability to function and affect consciousness. Electroencephalogram (EEG). If your provider thinks you may be having seizures instead of syncope, this test may be done. Electrodes are applied to the scalp to measure the activity of the brain. A neurologist who specializes in reading EEGs would interpret the results. You may be evaluated by a insurance writer, a neurologist, or an ear, nose, and throat specialist to fully evaluate the cause of your syncope. Treatment will be based on whatever the cause is. Be sure toask your provider how you will receive the results of your tests and what additional steps must be taken. One of the concerns with syncope is being injured from falling with a loss of consciousness. Finding a cause for syncope can help keep you safe from injury. Do not drive a car, operate heavy machinery, or engage in activities that may result in injury if you were to faint during the activity. Ask your provider when it will be safe for you to resume these activities. 7591-0552 [employer]. [address] [place] [address]. All rights reserved. This information is not intended as a substitute for professional medical care. Always follow yourhealthcare professional's instructions. Additional Information VACCINATE! IT SAVES LIVES! Members of the community who have not yet received the COVID-19 vaccine and would like to receive it can visit one of [facility] vaccine clinics. There are many vaccine clinic locations within the [facility]. For locations and available times, please visit www.gettheshot.coronavirus.[place].gov/. It is important to note that some COVID mobile vaccine clinics are held outdoors and may be canceled in rainy or stormy conditions. To learn more about pediatric vaccinations (ages 5-11), we invite you to visit the [email or web address] webpage. https://www.[email or web address].org/pages/7347-Niorc-Jewuoedclqx-Emeribwtee-Pqxxg-Csc stions.htmlTo learn more about the COVID-19 vaccine, we invite you to visit the CDC website for a list of frequently asked questions. https://www.cdc.gov/coronavirus/2019-ncov/vaccines/faq.html [facility] Patient Portal Access Instructions: Stay connected with your healthcare team and access your personal medical information anytime with the [employer] Patient Portal. If you would like a full copy of your medical records please contact the [facility] Medical Records Department Monday through Monday between 8a.m. and 4:30p.m. Please follow the directions below to access the portal: 1.Access the email account you provided upon registration to the hospital.2.Look for an invitation email from [facility].3.Open the email and access the invitation link: Accept Invitation to [facility]4.Fill in the required house to create your account. Sign into [email or web address] with your username and password that you created in the above steps to stay up to date. You can then view a summary of results, a summary of your visits, and the ability to download your summaries to your computer or send the information securely to a physician. Remember that your healthcare information is confidential, so carefully consider who you will allow to register on the [facility] Patient Portal for access to your information. You can also access the [employer] Patient Portal on the Imaging3. Simply click on Health Records under [employer] and then click on the [employer] logo. HOW TO SAFELY DISPOSE OF PRESCRIPTION MEDICATIONS Please use one of the following methods to safely dispose of your unused medications. 1.Use a drug disposal kit: the drug disposal pouch allows you to safely discard your old and unuseddrugs. Ask your nurse to give you one when you are discharged.2.Visit a local take-back location: Many local pharmacies and police departments have programs that collect old and unwanted prescriptiondrugs. Call your local pharmacy or go to http://Cyzone.OncoPep/0M8Ks3y to find one close to you.3.Make use of household items: Use cat litter or old coffee grounds to dispose medications if other options arenot available. Mix your drugs with these household products, seal them in an airtight container andthrow it into the garbage. Call [facility]: [phone] to be sure your drugs can be disposed of in this way. Some medicines may require a different approach.4.Never flush your medications down the toilet. IF YOU HAVE BEEN PRESCRIBED AN OPIOIDS FOR PAIN If you have been prescribed an opioid (such as hydrocodone, oxycodone or morphine), it is critical to understand the possible side effects and risks of opioid pain medications. Even when taken as directed, opioids can have several side effects including: Tolerance, meaning you might need to take more of a medication for the same pain relief. Nausea, vomiting and/or constipation. Sleepiness, dizziness, dry mouth, confusion, depression or itching. Physical dependence, meaning you have withdrawal symptoms when a medication is stopped ? this can develop within a few days. KNOW YOUR RESPONSIBILITIES It is important to know exactly how much and how often to take the opioid pain medications you are prescribed. Never take opioids in higher amounts or more often than prescribed. Do not combine opioids with alcohol or other drugs that cause drowsiness, such as benzodiazepines, also known as benzos,including diazepam and alprazolam, muscle relaxants or sleep aids. Never sell or share prescriptionopioids. This is illegal. Store opioids in a secure place and out of reach of others (including children, family, friends and visitors). The last page(s) of this document has been signed and retained as a CHART COPY Signatures Patient Education Materials Diagnosing Syncope Medication Leaflets My discharge plan and instructions have been reviewed and explained to me and I,YOMI VICK S understand my current condition and have read and understand these discharge instructions. I have received a written copy of the plan/instructions. If I have questions, I am aware that I should contact my doctor. 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 Automated exposure control, iterative reconstruction, and/or weight based adjustment of the mA/kV was utilized to reduce the radiation dose to as low as reasonably achievable. COMPARISON: None. HISTORY: ORDERING SYSTEM PROVIDED HISTORY: Reason for Exam: syncopal episode FINDINGS: BRAIN/VENTRICLES: There is no acute intracranial hemorrhage, mass effect or midline shift. No abnormal extra-axial fluid collection. The santos-white differentiation is maintained without evidence of a large acute territorial infarct. There is no evidence of hydrocephalus. Partially empty sella. ORBITS: The visualized portion of the orbits demonstrate no acute abnormality. SINUSES: The visualized paranasal sinuses and mastoid air cells demonstrate no acute abnormality. SOFT TISSUES/SKULL: No acute abnormality of the visualized skull or soft tissues. IMPRESSION: No acute intracranial hemorrhage, hydrocephalus, or mass effect. Partially empty sella which could be incidental or related to intracranial hypertension. Interpreted by: Sharon Polk MD Preliminary Report By: Sharon Polk MD Electronically signed By Sharon Polk MD Dictated Date: 03/25/2024 8:53:05 AM Prelim Date: 03/25/2024 8:56:40 AM Sign Date: 03/25/2024 8:56:40 AM [facility]ing [facility] Note ORIGINAL EXAMINATION: ONE XRAY VIEW OF THE CHEST 03/25/2024 8:44 am COMPARISON: None. HISTORY: ORDERING SYSTEM PROVIDED HISTORY: Reason for Exam: syncopal episode FINDINGS: The cardiomediastinal silhouette is normal. No focal consolidation, pleural effusion, vascular congestion, or pneumothorax. Monitoring leads overlie the image. Degenerative changes noted in the spine. IMPRESSION: No acute radiographic findings. Interpreted by: Sharon Polk MD Preliminary Report By: Sharon Polk MD Electronically signed By Sharon Polk MD Dictated Date: 03/25/2024 8:49:17 AM Prelim Date: 03/25/2024 8:49:50 AM Sign Date: 03/25/2024 8:49:50 AM [facility]ing [facility] NoteSinus rhythm Borderline short MN interval IVCD, consider atypical RBBB Left ventricular hypertrophy Lateral infarct, age indeterminate Baseline wander in lead(s) V4 Electronic Signature: DANIELLE BANSAL MD 03/25/2024 08:06:33[facility] Evaluation + Plan note No data available for this section [facility] Evaluation noteNo assessment information available [facility] Work Phone: Evaluation note* Diagnosis Syncope, unspecified syncope type- Primary Benign intracranial hypertension Empty sella (HCC) Other disorders of the pituitary and other syndromes of diencephalohypophyseal origin documented in this encounter [facility] note* Diagnosis IIH (idiopathic intracranial hypertension)- Primary Benign intracranial hypertension documented in this encounter [facility] note* Diagnosis Benign intracranial hypertension documented in this encounter [facility] note* Diagnosis Empty sella (HCC)- Primary Other disorders of the pituitary and other syndromes of diencephalohypophyseal origin Asymmetrical thyroid Unspecified disorder of thyroid documented in this encounter [facility] note* Diagnosis Asymmetrical thyroid Unspecified disorder of thyroid documented in this encounter [facility] for referral (narrative)* Outpatient Procedure (Routine) - Authorized Specialty Diagnoses / Procedures Referred By Contac t Referred To Contact [facility] Diagnoses Syncope, unspecified syncope type Procedures EPIL EEG ROUTINE ELECTROENCEPHALOGRAM REC COMA/SLEEP ONLY Peggy Staley MD [address] [phone] [facility] [employer] [address] [place] [address] Referral ID Status Reason Start Date Expiration Date Visits Requested Visits Authorized [id number] Authorized Auto-Generat ed Referral 05/10/2024 05/10/2025 1 1 * Consult, Test, Treat (Routine) - Authorized Specialty Diagnoses / Procedures Referred By Contac t Referred To Contact Cardiology Diagnoses Syncope, unspecified syncope type Procedures CONSULT TO CARDIOLOGY OFFICE/OUTPATIENT [facility] 60 MINUTES Peggy Staley MD [address] [place] [address] Referral ID Status Reason Start Date Expiration Date Visits Requested Visits Authorized [id number] Authorized PCP Requested Referral 05/10/2024 05/10/2025 1 1 * Consult, Test, Treat (Routine) - Authorized Specialty Diagnoses / Procedures Referred By Contac t Referred To Contact Endocrinology Diagnoses Empty sella (HCC) Procedures CONSULT TO ENDOCRINOLOGY OFFICE/OUTPATIENT [facility] 60 MINUTES Peggy Staley MD [address] [phone] Referral ID Status Reason Start Date Expiration Date Visits Requested Visits Authorized [id number] Authorized PCP Requested Referral 05/10/2024 05/10/2025 1 1 * MRI/CT (Routine) - Pending Review Specialty Diagnoses / Procedures Referred By Contac t Referred To Contact MR IMAGING Diagnoses Benign intracranial hypertension Procedures MRI BRAIN WO/W IVCON MRI BRAIN BRAIN STEM W/O W/CONTRAST MATERIAL Peggy Staley MD [address] [phone] [facility] [place] [address] Referral ID Status Reason Start Date Expiration Date Visits Requested Visits Authorized [id number] Pending Review Auto-Generat ed Referral 05/10/2024 06/09/2025 1 1 [facility] Diagnostic Procedure Only (Routine) - Authorized Specialty Diagnoses / Procedures Referred By Sim corado Referred To Contact US IMAGING Diagnoses Asymmetrical thyroid Procedures US THYROID/PARATHYROID US SOFT TISSUE HEAD & NECK REAL TIME IMGE Noa Gregorio MD [address] [place] [address] [facility] [place] [address] Referral ID Status Reason Start Date Expiration Date Visits Requested Visits Authorized [id number] Authorized Auto-Generat ed Referral 4 07/28/2025 1 1 [facility] Chief Complaint and Reason for Visit Chief Complaint EORDER Reason for Referral Specialty Diagnoses / Procedures Referred By Sim corado Referred To Contact Neurology Diagnoses IIH (idiopathic intracranial hypertension) Procedures CONSULT TO NEUROLOGY OFFICE/OUTPATIENT [facility] 60 MINUTES Peggy Staley MD [address] [place] [address] Referral ID Status Reason Start Date Expiration Date Visits Requested Visits Authorized [id number] Authorized PCP Requested Referral 06/07/2025 1 1 Specialty Diagnoses / Procedures Referred By Sim corado Referred To Contact MR IMAGING Diagnoses Benign intracranial hypertension Procedures MRI BRAIN WO/W IVCON MRI BRAIN BRAIN STEM W/O W/CONTRAST MATERIAL Peggy Staley MD [address] [place] [address] [facility] [place] [address] Referral ID Status Reason Start Date Expiration Date V isits Requested Visits Authorized [id number] Closed Auto-Generate d Referral 05/17/2024 06/30/2024 1 1 Summary Purpose Family History No Family History Records Found Advance Directives No Advanced Directives Records FoundNo Advanced Directives Records FoundNo Advanced Directives Records Found Additional Source Comments Goals (unrecognized section and content) Goals may be documented in a n alternate section No data available for this section No data available for this section Source Comments (unrecognize d section and content) In the event this informatio n is protected by the Federal Confidentiality of Alcohol and Drug Abuse Patient Records regulations: The Federal rules restrict any use of the information to criminally investigate or prosecute any alcohol or drug abuse patient.[facility] the event this information is protected by the Federal Confidentiality of Alcohol and Drug Abuse Patient Records regulations: The Federal rules restrict any use of the information to criminally investigate or prosecute any alcohol or drug abuse patient.[facility] Center[facility] the event this information is protected by the Federal Confidentiality of Alcohol and Drug Abuse Patient Records regulations: The Federal rules restrict any use of the information to criminally investigate or prosecute any alcohol or drug abuse patient.[facility] Center[facility] the event this information is protected by the Federal Confidentiality of Alcohol and Drug Abuse Patient Records regulations: The Federal rules restrict any use of the information to criminally investigate or prosecute any alcohol or drug abuse patient.[facility] CenterIn the event this information is protected by the Federal Confidentiality of Alcohol and Drug Abuse Patient Records regulations: The Federal rules restrict any use of the information to criminally investigate or prosecute any alcohol or drug abuse patient.[facility] CenterIn the event this information is protected by the Federal Confidentiality of Alcohol and Drug Abuse Patient Records regulations: The Federal rules restrict any use of the information to criminally investigate or prosecute any alcohol or drug abuse patient.[facility] CenterIn the event this information is protected by the Federal Confidentiality of Alcohol and Drug Abuse Patient Records regulations: The Federal rules restrict any use of the information to criminally investigate or prosecute any alcohol or drug abuse patient.[facility] CenterIn the event this information is protected by the Federal Confidentiality of Alcohol and Drug Abuse Patient Records regulations: The Federal rules restrict any use of the information to criminally investigate or prosecute any alcohol or drug abuse patient.[facility] Reason for Visit (unrecogniz ed section and content) Reason Comments New Patient Evaluation Abnormal brain sc an Specialty Diagnoses / Procedures Referred By Contac t Referred To Contact MR IMAGING Diagnoses Benign intracranial hypertension Procedures MRI BRAIN WO/W IVCON MRI BRAIN BRAIN STEM W/O W/CONTRAST MATERIAL Peggy Staley MD [address] [place] [address] [facility] [place] [address] Referral ID Status Reason Start Date Expiration Date V isits Requested Visits Authorized [id number] Closed Auto-Generate d Referral 05/17/2024 06/30/2024 1 1 Reason Comments Appointment Called to schedule c onsult to headache clinic. LVM with phone number to call and schedule Reason Comments Results Reason Comments Pituitary Problem Empty sella MRI 05/11 04/02 Specialty Diagnoses / Procedures Referred By Contac t Referred To Contact Endocrinology Diagnoses Empty sella (HCC) Procedures CONSULT TO ENDOCRINOLOGY OFFICE/OUTPATIENT NEW HIGH MDM 60 MINUTES Peggy Staley MD [address] [place] [address] Referral ID Status Reason Start Date Expiration Date V isits Requested Visits Authorized [id number] Closed PCP Requested Referral 05/10/2024 05/10/2025 1 1 Reason Comments Radiology US Specialty Diagnoses / Procedures Referred By Contac t Referred To Contact US IMAGING Diagnoses Asymmetrical thyroid Procedures US THYROID/PARATHYROID US SOFT TISSUE HEAD & NECK REAL TIME IMGE Noa Gregorio MD [address] [place] [address] [facility] [place] [address] Referral ID Status Reason Start Date Expiration Date V isits Requested Visits Authorized [id number] Closed Auto-Generate d Referral 06/28/2024 07/28/2025 1 1 Patient Care team informatio n (unrecognized section and content) Care Team Personnel Name: ROSEANNA MCGHEE MD Member Role: Primary Care Physician Address: Address: [address] [place] [address]- Care Team Personnel Name: ORION AGUILAR MD Member Role: Primary Care Physician Address: [address] [place] [address] [address] [place] [address]- Telecom: Care Team Related Persons Name: JOHN CONRAD Name: RUBEN HUGGINS (unrecognized sect ion and content) No Status Records FoundNo Status Records FoundNo Status Records Found INFORMATION SOURCE (unrecogn ized section and content) DATE CREATED AUTHOR 07/19/2024 [facility] DATE CREATED AUTHOR AUTHOR'S ORGANIZ ATION 07/24/2024 [facility] DATE CREATED AUTHOR AUTHOR'S ORGANIZ ATION 11/21/2024 [facility] FOR RECORDS PERTAINING TO PATIENTS WHO ARE OR HAVE BEEN ENROLLED IN A CHEMICAL DEPENDENCY/SUBSTANCEABUSE PROGRAM, SOME INFORMATION MAY BE OMITTED. This clinical summary was aggregated from multiple sources. Caution should be exercised in using it in the provision of clinical care. This summary normalizes information from multiple sources, and as a consequence, information in this document may materially change the coding, format and clinical context of patient data. In addition, data may be omitted in some cases. CLINICAL DECISIONS SHOULD BE BASED ON THE PRIMARY CLINICAL RECORDS. [employer] provides no warranty or guarantee of the accuracy or completeness of information in this document.
== END 2025-02-14 21:01 | disposition home or self-care (01) ==
LOC: ED 20:20
PROVIDERS: Emergency Provider Emergency Medicine; PCP Nurse Practitioner Family; Visit Provider Emergency Medicine
DX: K02.9 Dental caries, unspecified (principal); K08.89 Other specified disorders of teeth and supporting structures; F17.210 Nicotine dependence, cigarettes, uncomplicated
CPT/HCPCS: 99283